=== PATIENT | female | born 1980 | race Caucasian/White ===

== ENCOUNTER → 2019-07-17 14:29 | Outpatient (CLI) | payer BC, SELFPAY ==
[2019-07-17 14:45] LABS: Basophils # 0.1 K/mm3 (0-0.2); Basophils % 0.7 % (0.1-2.0); Eosinophils # 0.3 K/mm3 (0.0-0.4); Eosinophils % 3.2 % (0.1-12.0); Hematocrit 46.1 % (37.0-47.0); Hemoglobin 14.4 g/dL (12.2-16.2); Lymphocytes # 2.2 K/mm3 (0.7-4.5); Lymphocytes % 27.2 % (10-50); Mean Corpuscular HGB Conc 31.4 g/dL (31.8-35.4); Mean Corpuscular Hemoglobin 31.1 pg (27.0-31.2); Mean Corpuscular Volume 99.3 fl (81-99); Mean Platelet Volume 9.2 fl (7.4-10.4); Monocytes # 0.4 K/mm3 (0.1-1.0); Monocytes % 4.6 % (1.7-9.3); Neutrophils # 5.2 K/mm3 (1.8-7.8); Neutrophils % 64.3 % (37.0-80.0); Platelet Count 274 K/mm3 (142-424); Red Blood Count 4.64 M/mm3 (4.20-5.40); Red Cell Distribution Width 12.9 % (11.5-17.5)
[2019-07-17 15:35] LABS: Alanine Aminotransferase 53 U/L (12-78); Albumin Level 3.7 gm/dL (3.4-5.0); Albumin/Globulin Ratio 1.1 (1.1-1.8); Alkaline Phosphatase 70 U/L (46-116); Anion Gap 13.5 mEq/L (5-15); Aspartate Amino Transferase 16 U/L (15-37); Bilirubin,Total 0.2 mg/dL (0.2-1.0); Blood Urea Nitrogen 22 mg/dL (7-18); Calcium 8.8 mg/dL (8.5-10.1); Carbon Dioxide 24 mmol/L (21.0-32.0); Chloride 106 mmol/L (98-107); Chol/HDL Ratio 3.4 (1-3.5); Cholesterol 181 mg/dL (140-200); Creatinine,Serum 0.71 mg/dL (0.55-1.02); Estimated Glomerular Filt Rate 93 ml/min (>60); GFR (African American) 112 ML/MIN (>60); Globulin 3.4 gm/dl (1.3-3.2); Glucose 80 mg/dL (74-106); HDL Cholesterol 53 mg/dL (29-89); LDL Cholesterol 110 mg/dL (0-130); Potassium 4.5 mmoL/L (3.5-5.1); Sodium 139 mmol/L (136-145); Thyroid Stimulating Hormone 0.69 uIU/ml (0.358-3.740); Total Protein,Serum 7.1 gm/dL (6.4-8.2); Triglycerides 88 mg/dL (30-200); VLDL Cholesterol 18 mg/dL (0-40)
[2019-07-19 08:13] LABS: Vitamin D 25 Hydroxy 38.6 ng/mL (30.0-100.0)
== END ==
PROVIDERS: Visit Provider Nurse Practitioner Family
DX: I10 Essential (primary) hypertension (principal); R51 Headache
CPT/HCPCS: 80053; 80061; 82652; 84436; 84443; 85025

== ENCOUNTER → 2019-07-27 07:47 | Outpatient (CLI) | payer BC, SELFPAY ==
--- NOTE | 2019-07-27 07:48 | CA_ITS ---
APPROVED REPORT Nozzle Operator: Gela Bucio RVT Study Quality: Excellent Indications: hypertension Risk Factors Hypertension Smoking Renal Artery Doppler Origin (R) 109.6/ cm/sec Proximal (R) 126.3/ cm/sec Mid (R) 96.9/ cm/sec Distal (R) 90.7/ cm/sec Renal Aorta Ratio (R) 1.12 Segmental A. (R) 66.1/25.9 cm/sec RI: 0.60 Segmental A. Sup (R) 33.0/16.1 cm/sec Segmental A. Mid (R) 66.1/25.9 cm/sec Segmental A. Inf (R) 34.8/17.9 cm/sec Origin (L) 92.0/ cm/sec Proximal (L) 70.7/ cm/sec Mid (L) 87.2/ cm/sec Distal (L) 76.4/ cm/sec Renal Aorta Ratio (L) 0.82 Segmental A. (L) 44.0/25.0 cm/sec RI: 0.43 Segmental A. Sup (L) 44.0/25.0 cm/sec Segmental A. Mid (L) 23.5/13.2 cm/sec Segmental A. Inf (L) 39.1/17.1 cm/sec Renal Measurements Kidney Size (R) 11.0x6.7 cm Cortical Thickness (R) 1.3 cm Kidney Size (L) 9.9x6.2 cm Cortical Thickness (L) 1.3 cm Conclusion Study suggests no evidence of renal artery stenosis of the bilateral renal arteries. Electronically signed by : Brian Gan MD 07/27/2019 17:32:43
== END ==
PROVIDERS: PCP Nurse Practitioner Family; Visit Provider Nurse Practitioner Family
DX: I10 Essential (primary) hypertension (principal)
CPT/HCPCS: 93976

== ENCOUNTER 2021-05-07 15:51 | Emergency (ER) | payer BC, SELFPAY ==
[2021-05-07 17:46] VITALS: BP 118/79; PULSE 69; RESP 19; TEMP 36.6; O2SAT 98; BMI 26.6
[2021-05-07 17:50] VITALS: BP 118/79; PULSE 69; RESP 18; TEMP 36.6
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
== END 2021-05-07 18:11 | disposition home or self-care (01) ==
PROVIDERS: Emergency Provider Nurse Practitioner Family; PCP Emergency Medicine
DX: Z20.822 Contact with and (suspected) exposure to COVID-19 (principal); F17.210 Nicotine dependence, cigarettes, uncomplicated
CPT/HCPCS: 99202; G0463; U0003

== ENCOUNTER 2021-11-19 09:13 | Emergency (ER) | payer BC, SELFPAY ==
[2021-11-19 09:13] VITALS: BP 155/100; PULSE 69; RESP 20; TEMP 37; O2SAT 98
[2021-11-19 09:15] VITALS: BMI 25.4
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
--- NOTE | 2021-11-19 09:23 | ECG_ITS ---
APPROVED REPORT Exam: Resting ECG HR:65 bpm ECG Measurements Heart Rate 65 AXES NV 175 P 48 QRSd 103 QRS 7 QT 413 T 38 QTc 424 Conclusion SINUS RHYTHM Normal ECG UNCONFIRMED REPORT Electronically signed by : Cuong Soliman MD 11/19/2021 17:27:19
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
[2021-11-19 09:28] LABS: Basophils # 0.2 K/mm3 (0-0.2); Basophils % 1.5 % (0.1-2.0); Eosinophils # 0.3 K/mm3 (0.0-0.4); Eosinophils % 2.9 % (0.1-12.0); Hematocrit 44.7 % (37.0-47.0); Hemoglobin 14.7 g/dL (12.2-16.2); Mean Corpuscular HGB Conc 32.9 g/dL (31.8-35.4); Mean Corpuscular Hemoglobin 32.2 pg (27.0-31.2); Monocytes # 0.5 K/mm3 (0.1-1.0); Monocytes % 4.8 % (1.7-9.3); Neutrophils # 7.4 K/mm3 (1.8-7.8); Neutrophils % 64.8 % (37.0-80.0); Platelet Count 328 K/mm3 (142-424); Red Blood Count 4.56 M/mm3 (4.20-5.40); Red Cell Distribution Width 12.5 % (11.5-17.5); White Blood Count 11.4 K/mm3 (4.8-10.8)
[2021-11-19 09:36] LABS: Alanine Aminotransferase 66 U/L (12-78); Albumin Level 4.1 g/dl (3.5-5.0); Albumin/Globulin Ratio 1.4 (1.1-1.8); Alkaline Phosphatase 60 U/L (38-126); Aspartate Amino Transferase 76 U/L (14-36); Bilirubin,Total 0.3 mg/dl (0.2-1.3); Blood Urea Nitrogen 17 mg/dl (7-17); Calcium 8.9 mg/dl (8.4-10.2); Carbon Dioxide 27 mmol/L (22.0-30.0); Chloride 107 mmol/L (98-107); Estimated Glomerular Filt Rate 111 ml/min (>60); GFR (African American) 135 ML/MIN (>60); Globulin 2.9 g/dL (1.3-3.2); Glucose 129 mg/dl (74-100); Lipase 156 U/L (23-300); Sodium 141 mmol/L (136-145)
[2021-11-19 09:37] VITALS: BP 137/97; PULSE 66; RESP 16; O2SAT 93
[2021-11-19 09:40] LABS: HCG Qualitative, Serum Negative (Negative)
[2021-11-19 10:31] VITALS: BP 133/92; PULSE 61; RESP 19; O2SAT 96
--- NOTE | 2021-11-19 10:49 | PC.NURSE ---
Radiologist called for emergent consult of patient.
--- NOTE | 2021-11-19 10:54 | PC.NURSE ---
contacted radiology for them to power share scans with [facility] per [facility] request, spoke with rikki
--- NOTE | 2021-11-19 10:59 | PC.NURSE ---
Dr Silvestre talking to [facility] Dr Romo. Pt report to be called and pt sent to [facility] ER
[2021-11-19 11:01] VITALS: BP 138/102; RESP 16
--- NOTE | 2021-11-19 11:05 | PC.NURSE ---
pt c/o abd pain
[2021-11-19 11:08] LABS: Coronavirus 19, PCR Not Detected (NotDetected); Influenza A, PCR Not Detected (NotDetected); Influenza B, PCR Not Detected (NotDetected)
--- NOTE | 2021-11-19 11:09 | PC.NURSE ---
iv #18 angio rt ac. labs drawn
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
[2021-11-19 11:14] LABS: INR 0.87 (0.9-1.1); Prothrombin Time 9.9 seconds (10.1-12.5)
--- NOTE | 2021-11-19 11:20 | PC.NURSE ---
report to [employer].
[2021-11-19 11:25] VITALS: BP 122/72; PULSE 64; RESP 20; TEMP 36.8; O2SAT 98
--- NOTE | 2021-11-19 11:27 | PC.NURSE ---
report called to [facility].
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
[2021-11-19 11:31] VITALS: BP 122/72; PULSE 64; RESP 20; TEMP 36.8; O2SAT 98
== END 2021-11-19 11:32 | disposition short-term general hospital (02) ==
PROVIDERS: Emergency Provider Emergency Medicine; PCP Emergency Medicine
DX: S36.039A Unspecified laceration of spleen, initial encounter (principal); S00.83XA Contusion of other part of head, initial encounter; V47.5XXA Car driver injured in collision with fixed or stationary object in traffic accident, initial encounter; Y92.413 State road as the place of occurrence of the external cause
CPT/HCPCS: 70450; 71045; 71275; 72125; 73060; 73552; 74177; 80053; 83690; 84703; 85025; 85610; 86850; 93005; 96365; 96375; 96376; 99285; C9803; J2405; Q9967; U0003; U0005

== ENCOUNTER 2021-11-25 07:43 | Observation (INO) | payer BC, SELFPAY ==
[2021-11-25] VITALS (20 sets, daily range): BP systolic 102–126; BP diastolic 62–84; PULSE 59–86; RESP 16–23; TEMP 36.6–37.2; O2SAT 93–98; BMI 26.4
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
--- NOTE | 2021-11-25 08:03 | CT_ITS ---
FINAL REPORT TECHNIQUE: After the administration of oral and intravenous contrast, axial images were obtained through the abdomen and pelvis by computed tomography. The study was performed with techniques to keep radiation dose as low as reasonably achievable, (ALARA). Individual dose reduction techniques using automated exposure control or adjustment of mA and/or kV according to the patient's size were employed. CLINICAL HISTORY: recent spleen injury, worsening pain 75 cc of isovue 370 and saline flush COMPARISON: November 19, 2021 FINDINGS: Abdomen: There is bibasilar atelectasis which is increased over previous. The liver parenchyma is homogeneous. The liver is enlarged measuring 22 cm in craniocaudal dimension. The gallbladder is distended. There is redemonstration of the complex splenic laceration which is well seen on images 16-27 of series 5. The laceration is better seen than previously. There appears to be 2 components of the laceration. The more superior component is larger and best seen on image number 19. A perisplenic hematoma has developed and measures approximately 11.5 cm in AP dimension and up to 3.3 cm in transverse dimension. There is mass effect on the lateral margin of the spleen. The pancreas, adrenals and kidneys appear unremarkable. The aorta is normal in caliber. Pelvis: The uterus is present and lies eccentric to the right. There is high attenuation ascites in the pelvis which is likely hemorrhagic. The urinary bladder is unremarkable. There is no free fluid or adenopathy. IMPRESSION: Interval development of a large perisplenic hematoma. Interval development of hemorrhagic ascites in the pelvis. Redemonstration of a splenic lacerations, better seen than previous. These findings were called to Hugo in the ER department at the time of interpretation. Reviewed, Interpreted and Dictated by Hoang Deras MD Transcribed by Shreya Benavides Authenticated by Hoang Deras MD on 11/25/2021 10:03:49 AM [facility]
--- NOTE | 2021-11-25 08:18 | HMH.EDGENADL ---
ED Disposition Clinical Impression: Splenic laceration Qualifiers: Encounter type: initial encounter Qualified Code(s): S36.039A - Unspecified laceration of spleen, initial encounter Disposition: Admitted as Observation Condition on Discharge: Good Referrals: Martin Buck MD [Primary Care Provider] - - Critical Care Critical Care Time: No Attestation: On 11/25/21, the high probability of a clinically significant, sudden or life threatening deterioration of the following system(s) required my full and direct attention, intervention and personal management. The time I documented below is in addition to time spent performing reported procedures but includes the following listed in this critical care notation. Medical Decision Making - Medical Records Medical records reviewed: Yes: I reviewed the patient's medical records. MR Comment: Reviewed emergency department record from 11/19/2021. Reviewed x-ray and CT reports. Reviewed records from [facility]. Reviewed discharge summary, CT report. Injuries include a grade IV splenic laceration with pseudo-aneuysm/extrav, large splenic subcapsular hematoma, and hemoperitoneum. --s/p IR splenic embolization on 11/19. CT angio of abdomen/pelvis showed Spleen: There is splenic laceration of 4.3 cm in the posterior superior aspect of the spleen. There is acute extravasation of contrast. There is subcapsular hematoma greater than 80% of the surface area. Intraparenchymal laceration greater than 3 cm. This lesion is a grade 3 injury. F/U recommended - PCP 1 wk, [facility] trauma 2 wks as needed. Attending - Dr. Carbajal. - Tyshawn Inquiry Pt receiving controlled substance: Yes Tyshawn was queried for this patient: Yes Risks and benefits of using a controlled substance: were not discussed with pt by me Vital Signs: 11/25/21 07:45 11/25/21 08:01 11/25/21 09:30 Temperature 97.8 F Temperature Source Oral Pulse Rate 75 80 Pulse Rate [Right Radial] 74 Respiratory Rate 18 Blood Pressure 124/76 102/68 L Blood Pressure [Right Arm] 118/73 Blood Pressure Mean 80 Blood Pressure Mean [Right Arm] 88 Blood Pressure Source [Right Arm] Automatic Cuff Blood Pressure Position [Right Arm] Sitting 02 Sat by Pulse Oximetry 96 94 L 96 Oxygen Delivery Method Room Air 11/25/21 10:00 11/25/21 10:30 11/25/21 11:00 Temperature Temperature Source Pulse Rate 59 L 59 L 86 Pulse Rate [Right Radial] Respiratory Rate Blood Pressure 107/74 L 109/84 L 112/76 Blood Pressure [Right Arm] Blood Pressure Mean 85 89 88 Blood Pressure Mean [Right Arm] Blood Pressure Source [Right Arm] Blood Pressure Position [Right Arm] 02 Sat by Pulse Oximetry 94 L 94 L 96 Oxygen Delivery Method 11/25/21 11:30 Temperature Temperature Source Pulse Rate 78 Pulse Rate [Right Radial] Respiratory Rate Blood Pressure 111/75 Blood Pressure [Right Arm] Blood Pressure Mean 89 Blood Pressure Mean [Right Arm] Blood Pressure Source [Right Arm] Blood Pressure Position [Right Arm] 02 Sat by Pulse Oximetry 95 Oxygen Delivery Method - Lab Data Lab Results 11/25/21 08:10: WBC 11.5 H, RBC 3.24 L, Hgb 10.3 L, Hct 32.5 L, MCV 100.2 H, MCH 31.8 H, MCHC 31.8, RDW 13.4, Plt Count 381, MPV 9.6, Neut % (Auto) 73.1, Lymph % (Auto) 16.6, [place] % (Auto) 5.6, Eos % (Auto) 3.9, Baso % (Auto) 0.7, Neut # (Auto) 8.4 H, Lymph # (Auto) 1.9, [place] # (Auto) 0.6, Eos # (Auto) 0.5 H, Baso # (Auto) 0.1 11/25/21 08:10: Sodium 137, Potassium 4.4, Chloride 106, Carbon Dioxide 25, Anion Gap 10.4, BUN 17, Creatinine 0.50 L, Estimated Creat Clear 151, Estimated GFR 137, Est GFR ( Amer) 166, Glucose 123 H, Calcium 9.1, Total Bilirubin 0.6, AST 40 H, ALT 36, Alkaline Phosphatase 80, Total Protein 7.1, Albumin 3.9, Globulin 3.2, Albumin/Globulin Ratio 1.2, Lipase 73 11/25/21 08:10: Serum HCG, Qual Negative Result diagrams: 11/25/21 08:10 11/25/21 08:10 Orders (Tests/Meds): ED MEDICATI
[2021-11-25 08:31] LABS: Alanine Aminotransferase 36 U/L (12-78); Albumin Level 3.9 g/dl (3.5-5.0); Albumin/Globulin Ratio 1.2 (1.1-1.8); Alkaline Phosphatase 80 U/L (38-126); Anion Gap 10.4 mEq/L (5-15); Aspartate Amino Transferase 40 U/L (14-36); Bilirubin,Total 0.6 mg/dl (0.2-1.3); Blood Urea Nitrogen 17 mg/dl (7-17); Calcium 9.1 mg/dl (8.4-10.2); Carbon Dioxide 25 mmol/L (22.0-30.0); Chloride 106 mmol/L (98-107); Creatinine Clearance Estimated 151 mL/min (50-200); Estimated Glomerular Filt Rate 137 ml/min (>60); GFR (African American) 166 ML/MIN (>60); Globulin 3.2 g/dL (1.3-3.2); Glucose 123 mg/dl (74-100); Lipase 73 U/L (23-300); Potassium 4.4 mmoL/L (3.5-5.1); Sodium 137 mmol/L (136-145); Total Protein,Serum 7.1 g/dl (6.3-8.2)
[2021-11-25 08:33] LABS: Basophils # 0.1 K/mm3 (0-0.2); Basophils % 0.7 % (0.1-2.0); Eosinophils # 0.5 K/mm3 (0.0-0.4); Eosinophils % 3.9 % (0.1-12.0); HCG Qualitative, Serum Negative (Negative); Hematocrit 32.5 % (37.0-47.0); Hemoglobin 10.3 g/dL (12.2-16.2); Lymphocytes # 1.9 K/mm3 (0.7-4.5); Lymphocytes % 16.6 % (10-50); Mean Corpuscular HGB Conc 31.8 g/dL (31.8-35.4); Mean Corpuscular Hemoglobin 31.8 pg (27.0-31.2); Mean Corpuscular Volume 100.2 fl (81-99); Mean Platelet Volume 9.6 fl (7.4-10.4); Monocytes # 0.6 K/mm3 (0.1-1.0); Monocytes % 5.6 % (1.7-9.3); Neutrophils # 8.4 K/mm3 (1.8-7.8); Neutrophils % 73.1 % (37.0-80.0); Platelet Count 381 K/mm3 (142-424); Red Blood Count 3.24 M/mm3 (4.20-5.40); Red Cell Distribution Width 13.4 % (11.5-17.5); White Blood Count 11.5 K/mm3 (4.8-10.8)
--- NOTE | 2021-11-25 08:56 | PC.NURSE ---
pt in CT
--- NOTE | 2021-11-25 10:20 | PC.NURSE ---
speaking to about consult regarding CT results
--- NOTE | 2021-11-25 13:14 | PC.NURSE ---
MIGUEL ANGEL BOLTON speaking with [facility] again at this time
--- NOTE | 2021-11-25 14:08 | PC.NURSE ---
notified care management of admission, spoke with carlos
[2021-11-25 14:13] LABS: Coronavirus 19, PCR Not Detected (NotDetected); Influenza A, PCR Not Detected (NotDetected); Influenza B, PCR Not Detected (NotDetected)
--- NOTE | 2021-11-25 14:45 | PC.NURSE ---
per loader [employer] pt will be boarding in ER until shift change
--- NOTE | 2021-11-25 14:59 | PC.NURSE ---
traffic warehouse supervisor called with updated room assignment-states pt will go to room 266
--- NOTE | 2021-11-25 15:10 | PC.NURSE ---
lab staff states covid swab is in line to be done, has one swab on the analyzer in front of it
[2021-11-25 15:47] LABS: Basophils # 0.1 K/mm3 (0-0.2); Basophils % 0.9 % (0.1-2.0); Eosinophils # 0.3 K/mm3 (0.0-0.4); Eosinophils % 3.3 % (0.1-12.0); Hematocrit 32.7 % (37.0-47.0); Hemoglobin 10.7 g/dL (12.2-16.2); Lymphocytes # 1.6 K/mm3 (0.7-4.5); Lymphocytes % 16.8 % (10-50); Mean Corpuscular HGB Conc 32.6 g/dL (31.8-35.4); Mean Corpuscular Hemoglobin 32.1 pg (27.0-31.2); Mean Corpuscular Volume 98.4 fl (81-99); Mean Platelet Volume 9.5 fl (7.4-10.4); Monocytes # 0.5 K/mm3 (0.1-1.0); Monocytes % 5.3 % (1.7-9.3); Neutrophils # 7.1 K/mm3 (1.8-7.8); Neutrophils % 73.7 % (37.0-80.0); Platelet Count 371 K/mm3 (142-424); Red Blood Count 3.33 M/mm3 (4.20-5.40); Red Cell Distribution Width 13.4 % (11.5-17.5); White Blood Count 9.6 K/mm3 (4.8-10.8)
--- NOTE | 2021-11-25 16:34 | PC.NURSE ---
report called to zak sorensen rn in [facility]U at this time
[2021-11-25 21:25] LABS: Basophils # 0.2 K/mm3 (0-0.2); Basophils % 1.7 % (0.1-2.0); Eosinophils # 0.4 K/mm3 (0.0-0.4); Eosinophils % 4.2 % (0.1-12.0); Hemoglobin 10.7 g/dL (12.2-16.2); Lymphocytes # 1.5 K/mm3 (0.7-4.5); Lymphocytes % 16.1 % (10-50); Mean Corpuscular HGB Conc 33.3 g/dL (31.8-35.4); Mean Corpuscular Hemoglobin 32.7 pg (27.0-31.2); Mean Platelet Volume 9.2 fl (7.4-10.4); Monocytes # 0.4 K/mm3 (0.1-1.0); Monocytes % 4.6 % (1.7-9.3); Neutrophils # 6.7 K/mm3 (1.8-7.8); Neutrophils % 73.4 % (37.0-80.0); Platelet Count 384 K/mm3 (142-424); Red Blood Count 3.26 M/mm3 (4.20-5.40); Red Cell Distribution Width 13.3 % (11.5-17.5); White Blood Count 9.1 K/mm3 (4.8-10.8)
--- NOTE | 2021-11-25 22:47 | HMH.PHAVTE ---
[facility] Pharmacy VTE Monitoring - Patient Demographics Admission date: 11/25/21 Report Date: 11/25/21 Time: 22:47 Allergies/Adverse Reactions: Patient Allergies Codeine Allergy (Unknown, Uncoded 07/24/19 14:25) Height: 1.55 m Weight: 63.503 kg Patient Problems: Current Active Problems Spleen laceration (Acute) - VTE Risk Labs: VTE Related Lab Results Hgb 10.7 g/dL (12.2-16.2) L 11/25/21 21:19 Hct 32.0 % (37.0-47.0) L 11/25/21 21:19 Plt Count 384 K/mm3 (142-424) 11/25/21 21:19 BUN 17 mg/dl (7-17) 11/25/21 08:10 Creatinine 0.50 mg/dl (0.52-1.04) L 11/25/21 08:10 Estimated Creat Clear 151 mL/min (50-200) 11/25/21 08:10 Was VTE Risk Assessment Performed: No VTE Score: 0 VTE Risk Level: Very Low Risk Clinical Trial Participant: No - Prophylaxis VTE Prophylaxis Ordered?: Yes Types of VTE Prophylaxis: TEDS Knee High
--- NOTE | 2021-11-25 22:50 | HMH.PHAINT ---
clarified home medication list using list from [facility]
[2021-11-26] VITALS: BP 114/77; PULSE 68; PULSE 90; RESP 17; TEMP 36.9; O2SAT 93
[2021-11-26 02:00] VITALS: BP 90/56; PULSE 61; RESP 17; TEMP 37; O2SAT 96
[2021-11-26 03:43] LABS: Basophils # 0.1 K/mm3 (0-0.2); Basophils % 1.1 % (0.1-2.0); Eosinophils # 0.4 K/mm3 (0.0-0.4); Eosinophils % 4.1 % (0.1-12.0); Hematocrit 32.9 % (37.0-47.0); Hemoglobin 10.8 g/dL (12.2-16.2); Lymphocytes % 19.4 % (10-50); Mean Corpuscular HGB Conc 32.7 g/dL (31.8-35.4); Mean Corpuscular Hemoglobin 32.4 pg (27.0-31.2); Mean Corpuscular Volume 99.3 fl (81-99); Mean Platelet Volume 8.9 fl (7.4-10.4); Monocytes # 0.5 K/mm3 (0.1-1.0); Monocytes % 4.8 % (1.7-9.3); Neutrophils # 7.1 K/mm3 (1.8-7.8); Neutrophils % 70.6 % (37.0-80.0); Platelet Count 390 K/mm3 (142-424); Red Blood Count 3.32 M/mm3 (4.20-5.40); Red Cell Distribution Width 13.4 % (11.5-17.5); White Blood Count 10.1 K/mm3 (4.8-10.8)
[2021-11-26 04:00] VITALS: BP 113/75; PULSE 65; PULSE 78; RESP 18; TEMP 36.4; O2SAT 94
[2021-11-26 05:00] VITALS: BMI 24.9
[2021-11-26 08:00] VITALS: BP 97/68; PULSE 60; PULSE 64; RESP 16; TEMP 36.7; O2SAT 94
[2021-11-26 09:04] VITALS: RESP 16
[2021-11-26 09:18] LABS: Basophils # 0.1 K/mm3 (0-0.2); Basophils % 0.8 % (0.1-2.0); Eosinophils # 0.4 K/mm3 (0.0-0.4); Eosinophils % 4.3 % (0.1-12.0); Hematocrit 32.1 % (37.0-47.0); Hemoglobin 10.6 g/dL (12.2-16.2); Lymphocytes # 1.9 K/mm3 (0.7-4.5); Lymphocytes % 20.5 % (10-50); Mean Corpuscular HGB Conc 32.9 g/dL (31.8-35.4); Mean Corpuscular Hemoglobin 32.5 pg (27.0-31.2); Mean Corpuscular Volume 98.8 fl (81-99); Mean Platelet Volume 9.1 fl (7.4-10.4); Monocytes # 0.5 K/mm3 (0.1-1.0); Monocytes % 5.1 % (1.7-9.3); Neutrophils # 6.4 K/mm3 (1.8-7.8); Neutrophils % 69.3 % (37.0-80.0); Platelet Count 389 K/mm3 (142-424); Red Blood Count 3.25 M/mm3 (4.20-5.40); Red Cell Distribution Width 13.3 % (11.5-17.5); White Blood Count 9.2 K/mm3 (4.8-10.8)
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
--- NOTE | 2021-11-27 13:49 | CARE MANAGER ---
Attempted to call patient to discuss post discharge status, left voicemail with my call back number.
== END 2021-11-26 11:11 | disposition home or self-care (01) ==
LOC: ER 14:09 → 2ND 16:58 → ICU 16:58
PROVIDERS: Family Medicine; Admitting Provider Emergency Medicine; Emergency Provider Emergency Medicine; PCP Emergency Medicine; Visit Provider Emergency Medicine
DX: S36.039A Unspecified laceration of spleen, initial encounter (principal); Z20.822 Contact with and (suspected) exposure to COVID-19; Z79.899 Other long term (current) drug therapy; Z88.5 Allergy status to narcotic agent; F17.210 Nicotine dependence, cigarettes, uncomplicated
CPT/HCPCS: 36415; 71046; 74177; 80053; 83690; 84703; 85025; 99285; C9803; G0378; J2405; Q9967; U0003; U0005

== ENCOUNTER → 2021-12-30 09:26 | Outpatient (CLI) | payer BC, SELFPAY ==
--- NOTE | 2021-12-30 09:30 | XR_ITS ---
FINAL REPORT CLINICAL HISTORY: R thumblocking joint w/pain FINDINGS: 3 views of the right hand were obtained. There is no acute fracture or dislocation. The joint spaces are intact. There is no soft tissue abnormality. IMPRESSION: No acute process. Reviewed, Interpreted and Dictated by Hoang Deras MD Transcribed by Tariq Mosqueda Authenticated by Hoang Deras MD on 12/30/2021 10:48:53 AM [facility]
[2021-12-30 10:02] LABS: Basophils # 0.1 K/mm3 (0-0.2); Basophils % 0.6 % (0.1-2.0); Eosinophils # 0.2 K/mm3 (0.0-0.4); Eosinophils % 2.4 % (0.1-12.0); Hematocrit 40.9 % (37.0-47.0); Hemoglobin 13.3 g/dL (12.2-16.2); Lymphocytes # 2.6 K/mm3 (0.7-4.5); Lymphocytes % 32.2 % (10-50); Mean Corpuscular HGB Conc 32.6 g/dL (31.8-35.4); Mean Corpuscular Hemoglobin 31.1 pg (27.0-31.2); Mean Corpuscular Volume 95.2 fl (81-99); Mean Platelet Volume 8.9 fl (7.4-10.4); Monocytes # 0.5 K/mm3 (0.1-1.0); Monocytes % 6.3 % (1.7-9.3); Neutrophils # 4.8 K/mm3 (1.8-7.8); Neutrophils % 58.5 % (37.0-80.0); Platelet Count 284 K/mm3 (142-424); Red Cell Distribution Width 12.8 % (11.5-17.5); White Blood Count 8.1 K/mm3 (4.8-10.8)
[2021-12-30 10:46] LABS: Alanine Aminotransferase 20 U/L (12-78); Albumin Level 4.1 g/dl (3.5-5.0); Albumin/Globulin Ratio 1.6 (1.1-1.8); Alkaline Phosphatase 53 U/L (38-126); Anion Gap 8.8 mEq/L (5-15); Aspartate Amino Transferase 19 U/L (14-36); Bilirubin,Total 0.4 mg/dl (0.2-1.3); Blood Urea Nitrogen 17 mg/dl (7-17); Calcium 9.8 mg/dl (8.4-10.2); Carbon Dioxide 27 mmol/L (22.0-30.0); Chloride 109 mmol/L (98-107); Estimated Glomerular Filt Rate 93 ml/min (>60); GFR (African American) 113 ML/MIN (>60); Globulin 2.6 g/dL (1.3-3.2); Glucose 93 mg/dl (74-100); Potassium 3.8 mmoL/L (3.5-5.1); Sodium 141 mmol/L (136-145); Total Protein,Serum 6.7 g/dl (6.3-8.2)
[2021-12-30 11:17] LABS: Erythrocyte Sedimentation Rate 58 mm/hr (0-20)
== END ==
PROVIDERS: PCP Emergency Medicine; Visit Provider Emergency Medicine
DX: M24.842 Other specific joint derangements of left hand, not elsewhere classified (principal); L65.9 Nonscarring hair loss, unspecified
CPT/HCPCS: 36415; 73130; 80053; 85025; 85651

== ENCOUNTER 2022-06-10 08:38 | Emergency (ER) | payer BC, SELFPAY ==
[2022-06-10 08:39] VITALS: BP 107/80; PULSE 61; RESP 18; TEMP 36.5; O2SAT 99; BMI 25.7
[2022-06-10 08:46] VITALS: BMI 25.7
--- NOTE | 2022-06-10 08:49 | XR_ITS ---
FINAL REPORT CLINICAL HISTORY: pain FINDINGS: RIGHT SHOULDER: 3 views of the right shoulder were obtained. There is no acute fracture or dislocation. There is mild elevation of the distal clavicle. There is no soft tissue abnormality. IMPRESSION: Mild elevation of the distal clavicle. Mild AC joint separation cannot be excluded. Reviewed, Interpreted and Dictated by Chaitanya Hurley III, MD Transcribed by Tariq Mosqueda Authenticated and [facility]
--- NOTE | 2022-06-10 08:50 | PC.NURSE ---
checked on pt, pt call light hooked on pt bed within reach of pt. Pt states no needs at this time.
--- NOTE | 2022-06-10 08:51 | PC.NURSE ---
notified rad of xray order
--- NOTE | 2022-06-10 08:56 | PC.NURSE ---
pt in xray
--- NOTE | 2022-06-10 09:14 | PC.NURSE ---
MIGUEL ANGEL BOLTON at
--- NOTE | 2022-06-10 09:15 | HMH.EDGENADL ---
Discharge Plan Disposition Patient Disposition: Home, Self-Care Condition: Good Prescriptions Prescriptions: New ibuprofen 600 mg tablet 600 mg PO Q6H PRN (Reason: moderate pain ) Qty: 20 0RF No Action cholecalciferol (vitamin D3) 1,250 mcg (50,000 unit) capsule 1,250 mcg PO WEEKLY Referrals Follow up/Referrals: Martin Buck MD [Primary Care Provider] - See instructions Activity Restrictions/Add. Instructions Additional Instructions/Restrictions: Ibuprofen as prescribed. Follow-up with primary care provider if not improved in 3 to 4 days. Clinical Impressions Clinical Impression: Right shoulder tendinitis Stand Alone Forms Stand Alone Forms: Work/School Release Discharge ED Provider: Robby Daniel General Adult HPI General Chief complaint: Extremity Problem,Nontraumatic Stated complaint: RT shoulder pain, no accident Time Seen by Provider: 06/10/22 09:09 Mode of Arrival: Ambulatory Source of Information: Patient Limitations: No Limitations Description of Symptoms (Recalled from ER Triage Doc. 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 Denies any other injuries History of Present Illness HPI narrative: 2-day history of right shoulder pain. Predominantly anterior shoulder. No pain at rest, only hurts with movement. She does a lot of physical labor at work and is right-hand dominant. No treatment prior to arrival. No direct trauma. Related Data Home Medications Medication Instructions Recorded Confirmed cholecalciferol (vitamin D3) 1,250 1,250 mcg PO WEEKLY 02/19/22 02/19/22 mcg (50,000 unit) capsule Previous Rx's Medication Instructions Recorded ibuprofen 600 mg tablet 600 mg PO Q6H PRN moderate pain 06/10/22 #20 tabs Allergies Allergy/AdvReac Type Severity Reaction Status Date / Time Codeine Allergy Unknown Uncoded 02/19/22 08:46 PFSH PFSH Social History Smoking Status: Light tobacco smoker tobacco type: e-cigarettes alcohol intake: never substance use type: denies use current occupational status: unemployed Travel in the last 8 weeks: None household members: children housing: apartment ROS Obtained: Yes Systems reviewed as appropriate & no additional complaints except as documented Constitutional Constitutional: Denies fever(s) and Denies weakness Musculoskeletal Musculoskeletal: Reports as per HPI, Reports arthralgias (right shoulder) and Denies numbness Neurologic Neurologic: Denies numbness and Denies weakness Physical Exam General General appearance: alert and in no apparent distress Chest Chest inspection: Present normal inspection and symmetric chest wall rise Expanded Chest Exam Male Torso: 1. tender Respiratory Respiratory exam: Absent respiratory distress Cardiovascular Cardiovascular exam: Present regular rate Expanded Upper Extremity Exam Right: Shoulder exam: Present normal inspection, full ROM and tenderness (anterior); Absent swelling, deformity, crepitus, dislocation or tenderness over AC joint Comment: Tenderness right anterior shoulder. Full range of motion. Pain with abduction flexion and extension. No pain with internal and external rotation. No effusion. No crepitance. No subacromial tenderness. Normal neurovascular status distally. Neurological Exam Neurological exam: Present alert and oriented X3 Psychiatric Psychiatric exam: Present normal affect and normal mood Skin Skin exam: Present warm and dry Medical Decision Making Tyshawn Inquiry Pt receiving controlled substance: No Vital Signs: 06/10/22 08:39 06/10/22 09:44 Temperature 97.7 F 97.7 F Temperature Source Oral Oral Pulse Rate 85 Pulse Rate [Left Radial] 61 Respiratory Rate 18 18 Blood Pressure 110/65 Blood Pressure [Right Arm] 107/80 L Blood Pressure Mean [Right Arm] 89 Blood Pressure Source [Right Arm] Automatic
[2022-06-10 09:44] VITALS: BP 110/65; PULSE 85; RESP 18; TEMP 36.5; O2SAT 99
== END 2022-06-10 09:46 | disposition home or self-care (01) ==
PROVIDERS: Emergency Provider Emergency Medicine; PCP Emergency Medicine
DX: M77.8 Other enthesopathies, not elsewhere classified (principal); M25.511 Pain in right shoulder
CPT/HCPCS: 73030; 99283

== ENCOUNTER 2022-07-05 11:24 | Emergency (ER) | payer BC, SELFPAY ==
[2022-07-05 11:25] VITALS: BP 146/94; PULSE 68; RESP 16; TEMP 36.6; O2SAT 98; BMI 25.4
--- NOTE | 2022-07-05 11:51 | HMH.EDURI ---
Discharge Plan Disposition Patient Disposition: Home, Self-Care Prescriptions Prescriptions: New cefdinir 300 mg capsule 300 mg PO BID 10 Days Qty: 20 0RF methylprednisolone [Medrol (Nitin)] 4 mg tablets,dose pack 4 mg PO QID Qty: 21 0RF No Action cholecalciferol (vitamin D3) 1,250 mcg (50,000 unit) capsule 1,250 mcg PO WEEKLY ibuprofen 600 mg tablet 600 mg PO Q6H PRN (Reason: moderate pain ) Qty: 20 0RF Referrals Follow up/Referrals: Martin Buck MD [Primary Care Provider] - See instructions Activity Restrictions/Add. Instructions Additional Instructions/Restrictions: Use the medications as prescribed follow-up with your primary care physician maintain adequate hydration use Tylenol and ibuprofen r for body aches and fever as well as ear pain. Clinical Impressions Clinical Impression: Upper respiratory infection, Otitis media Instructions Patient Instructions: Common Cold, Middle Ear Infection Discharge ED Provider: Colby Gallardo URI/Sore Throat HPI General Chief Complaint: Upper Respiratory Infection Stated Complaint: cough, Rt ear pain, sore throat Time Seen by Provider: 07/05/22 11:28 Mode of Arrival: Ambulatory Limitations: No Limitations Description of Symptoms (Recalled from ER Triage Doc. by RN): Pt advises she has been feeling bad since Tuesday. Advises she has cough, congestion, sore throat and ear pain History of Present Illness HPI Narrative: 42-year-old female presents with upper respiratory symptoms x4 days. Daughter previously recovered from influenza and rhino enterovirus. She is a congestion cough is nonproductive body aches intermittent headaches and now developing right ear pain. States that the ear pain is what presented her to the emergency department given that was pending she was unable to tolerate at this point has only been using Tylenol Cold and flu intermittently. Denies difficulty breathing or chest pain. Related Data Home Medications Medication Instructions Recorded Confirmed cholecalciferol (vitamin D3) 1,250 1,250 mcg PO WEEKLY 02/19/22 02/19/22 mcg (50,000 unit) capsule Previous Rx's Medication Instructions Recorded ibuprofen 600 mg tablet 600 mg PO Q6H PRN moderate pain 06/10/22 #20 tabs cefdinir 300 mg capsule 300 mg PO BID 10 days #20 caps 07/05/22 methylprednisolone 4 mg tablets in 4 mg PO QID 4 doses #21 tabs 07/05/22 a dose pack (Medrol (Nitin)) Allergies Allergy/AdvReac Type Severity Reaction Status Date / Time Codeine Allergy Unknown Uncoded 02/19/22 08:46 PFSH PFS Social History Smoking Status: Current every day smoker tobacco type: e-cigarettes alcohol intake: never substance use type: denies use current occupational status: unemployed Travel in the last 8 weeks: None household members: children housing: apartment ROS Obtained: Yes Systems reviewed as appropriate & no additional complaints except as documented Physical Exam General General appearance: alert and in no apparent distress Head Head exam: atraumatic ENT ENT exam: Present TM's normal bilaterally (Bilateral effusions right is mildly erythematous still serous in nature) Chest Chest inspection: Present symmetric chest wall rise Respiratory Respiratory exam: Present normal lung sounds bilaterally; Absent respiratory distress Cardiovascular Cardiovascular exam: Present regular rate Neurological Exam Neurological exam: Present alert and oriented X3 Psychiatric Psychiatric exam: Present normal affect Skin Skin exam: Present warm, dry and intact Medical Decision Making Medical Records Medical records reviewed: Yes I reviewed the patient's medical records. Tyshawn Inquiry Pt receiving controlled substance: No Vital Signs: 07/05/22 11:25 Temperature 97.9 F Temperature Source Oral Pulse Rate [Right] 68 Respiratory Rate 16 Blood Pressure [Right Arm] 146/94 H Blood Pressu
[2022-07-05 12:14] VITALS: BP 138/90; PULSE 70; RESP 17; TEMP 36.7; O2SAT 98
== END 2022-07-05 12:15 | disposition home or self-care (01) ==
PROVIDERS: Emergency Provider Student in an Organized Health Care Education/Training Program; PCP Emergency Medicine
DX: H92.03 Otalgia, bilateral (principal); J06.9 Acute upper respiratory infection, unspecified; J02.9 Acute pharyngitis, unspecified; R05.9 Cough, unspecified; R51.9 Headache, unspecified; F17.290 Nicotine dependence, other tobacco product, uncomplicated; Z79.52 Long term (current) use of systemic steroids; Z79.899 Other long term (current) drug therapy; Z88.5 Allergy status to narcotic agent
CPT/HCPCS: 99283

== ENCOUNTER 2022-07-30 20:05 | Emergency (ER) | payer BC, SELFPAY ==
[2022-07-30 20:32] VITALS: BP 126/70; PULSE 63; RESP 18; TEMP 37.2; O2SAT 97; BMI 24.5
[2022-07-30 20:34] VITALS: BP 126/70; PULSE 60; RESP 16; TEMP 36.6; O2SAT 96
--- NOTE | 2022-07-30 20:47 | HMH.EDGENADL ---
Discharge Plan Disposition Patient Disposition: Home, Self-Care Condition: Good Prescriptions Prescriptions: New penicillin V potassium 500 mg tablet 500 mg PO BID 10 Days Qty: 20 0RF ibuprofen 600 mg tablet 600 mg PO Q8H PRN (Reason: pain) Qty: 20 0RF No Action cholecalciferol (vitamin D3) 1,250 mcg (50,000 unit) capsule 1,250 mcg PO WEEKLY ibuprofen 600 mg tablet 600 mg PO Q6H PRN (Reason: moderate pain ) Qty: 20 0RF cefdinir 300 mg capsule 300 mg PO BID 10 Days Qty: 20 0RF methylprednisolone [Medrol (Nitin)] 4 mg tablets,dose pack 4 mg PO QID Qty: 21 0RF Referrals Follow up/Referrals: Martin Buck MD [Primary Care Provider] - See instructions Activity Restrictions/Add. Instructions Additional Instructions/Restrictions: You have been evaluated for dental pain, diagnosed with an abscess. Please take antibiotics as prescribed. Use salt water wrinses before and after eating. Follow-up with your primary care doctor and dentist. Take Tylenol or Motrin for pain. Return to the emergency department at once for any new or worsening symptoms, difficulty swallowing, difficulty breathing, other concerns Clinical Impressions Clinical Impression: Dental caries, Abscess, dental Instructions Patient Instructions: Tooth Abscess, DI for Dental Pain Discharge ED Provider: Imelda Hernandez Adult HPI General Chief complaint: Dental/Oral Stated complaint: dental pain Time Seen by Provider: 07/30/22 20:33 Mode of Arrival: Ambulatory Source of Information: Patient Limitations: No Limitations Description of Symptoms (Recalled from ER Triage Doc. by RN): pt c/o abscess in her lower gum that she noticed yesterday. Denies any fever or injury. History of Present Illness HPI narrative: 42-year-old female presenting to the emergency department dental pain. Pain is on the front lower teeth gumline. Started earlier today. She noticed an area of swelling and redness. Now it has a whitish head. It is tender to touch. Hurts to eat. She has had dental infections before, this feels similar. No recent antibiotic or steroid use. She was unable to get into a dentist, due to the holiday. No medications prior to arrival, Tylenol or Motrin. No fevers, chills, nausea, vomiting. She does not suffer from frequent dental caries or dental decay. Related Data Home Medications Medication Instructions Recorded Confirmed cholecalciferol (vitamin D3) 1,250 1,250 mcg PO WEEKLY 02/19/22 02/19/22 mcg (50,000 unit) capsule Previous Rx's Medication Instructions Recorded ibuprofen 600 mg tablet 600 mg PO Q6H PRN moderate pain 06/10/22 #20 tabs cefdinir 300 mg capsule 300 mg PO BID 10 days #20 caps 07/05/22 methylprednisolone 4 mg tablets in 4 mg PO QID 4 doses #21 tabs 07/05/22 a dose pack (Medrol (Nitin)) ibuprofen 600 mg tablet 600 mg PO Q8H PRN pain #20 tabs 07/30/22 penicillin V potassium 500 mg 500 mg PO BID 10 days #20 tabs 07/30/22 tablet Allergies Allergy/AdvReac Type Severity Reaction Status Date / Time Codeine Allergy Unknown Uncoded 02/19/22 08:46 [facility] Social History Smoking Status: Current every day smoker tobacco type: e-cigarettes alcohol intake: never substance use type: denies use current occupational status: unemployed Travel in the last 8 weeks: None household members: children housing: apartment ROS Obtained: Yes All systems reviewed & no additional complaints except as documented Constitutional Constitutional: Denies chills and Denies fever(s) ENT Ears, Nose, Mouth, and Throat: Denies nasal congestion, Denies sinus pressure and Denies sore throat Cardiovascular Cardiovascular: Denies chest pain, Denies dyspnea and Denies palpitations Respiratory Respiratory: Denies cough, Denies dyspnea and Denies wheezing Gastrointestinal Gastrointestingal: Denies nausea or vomiting Integumentary/
[2022-07-30 21:33] VITALS: BP 120/67; PULSE 63; RESP 16; TEMP 36.6; O2SAT 97
== END 2022-07-30 21:40 | disposition home or self-care (01) ==
PROVIDERS: Emergency Provider Emergency Medicine; PCP Emergency Medicine
DX: K04.7 Periapical abscess without sinus (principal); K02.9 Dental caries, unspecified; Z72.0 Tobacco use
CPT/HCPCS: 41800; 99283

== ENCOUNTER → 2022-09-20 09:45 | Outpatient (CLI) | payer BC, SELFPAY ==
[2022-09-20 16:15] LABS: Basophils % 0.3 % (0.1-2.0); Eosinophils # 0.2 K/mm3 (0.0-0.4); Eosinophils % 2.4 % (0.1-12.0); Hematocrit 43.4 % (37.0-47.0); Hemoglobin 14.3 g/dL (12.2-16.2); Lymphocytes # 0.9 K/mm3 (0.7-4.5); Lymphocytes % 13.4 % (10-50); Mean Corpuscular HGB Conc 32.9 g/dL (31.8-35.4); Mean Corpuscular Hemoglobin 31.6 pg (27.0-31.2); Mean Platelet Volume 9.8 fl (7.4-10.4); Monocytes # 0.3 K/mm3 (0.1-1.0); Neutrophils # 5.4 K/mm3 (1.8-7.8); Platelet Count 283 K/mm3 (142-424); Red Blood Count 4.52 M/mm3 (4.20-5.40); Red Cell Distribution Width 12.8 % (11.5-17.5); White Blood Count 6.8 K/mm3 (4.8-10.8)
[2022-09-20 16:18] LABS: Alanine Aminotransferase 24 U/L (12-78); Albumin Level 4.1 g/dl (3.5-5.0); Albumin/Globulin Ratio 1.5 (1.1-1.8); Alkaline Phosphatase 59 U/L (38-126); Anion Gap 10.9 mEq/L (5-15); Aspartate Amino Transferase 25 U/L (14-36); Bilirubin,Total 0.9 mg/dl (0.2-1.3); Blood Urea Nitrogen 14 mg/dl (7-17); Carbon Dioxide 26 mmol/L (22.0-30.0); Chloride 104 mmol/L (98-107); Chol/HDL Ratio 3.4 (1-3.5); Cholesterol 183 mg/dl (140-200); Estimated Glomerular Filt Rate 111 ml/min (>60); GFR (African American) 134 ML/MIN (>60); Globulin 2.8 g/dL (1.3-3.2); Glucose 94 mg/dl (74-100); HDL Cholesterol 54 mg/dl (40-60); Potassium 3.9 mmoL/L (3.5-5.1); Sodium 137 mmol/L (136-145); Total Protein,Serum 6.9 g/dl (6.3-8.2); Triglycerides 114 mg/dl (30-150); VLDL Cholesterol 23 mg/dL (0-40)
[2022-09-20 16:39] LABS: 25-OH Vitamin D, Total < 12.8 ng/mL (30-100)
[2022-09-20 16:42] LABS: Monoscreen (Rapid) Negative (Negative)
[2022-09-20 16:51] LABS: Thyroid Stimulating Hormone 1.32 uIU/mL (0.465-4.68)
[2022-09-22 15:28] LABS: EBV Ab VCA, IgG >600.0 U/mL (0.0-17.9); EBV Ab VCA, IgM <36.0 U/mL (0.0-35.9)
== END ==
PROVIDERS: PCP Physician Assistant; Visit Provider Physician Assistant
DX: R10.12 Left upper quadrant pain (principal); E55.9 Vitamin D deficiency, unspecified
CPT/HCPCS: 80053; 80061; 82306; 84443; 85025; 86318; 86664; 86665

== ENCOUNTER → 2022-09-27 07:23 | Outpatient (CLI) | payer BC, SELFPAY ==
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
== END ==
PROVIDERS: PCP Physician Assistant; Visit Provider Physician Assistant
DX: R10.12 Left upper quadrant pain (principal)
CPT/HCPCS: 74176

== ENCOUNTER → 2022-09-28 09:10 | Outpatient (CLI) | payer BC, SELFPAY ==
[2022-10-15 19:49] LABS: APTT 25.6; Antithrombin Activity,Plasma 128; Factor VIII Activity 89; Homocyst(e)ine 6.6; Protein C Activity 195; Protein S Antigen,Free 113
[2022-10-15 19:50] LABS: Activated Protein C Resist 2.7; Anti-Cardiolipin Antibody IgG <10; Hexagonal Phase Phospholipid 1
[2022-10-15 19:51] LABS: Anti-Cardiolipin Antibody IgM <10; Beta-2 Glycoprotein I Ab, IgA <10; Beta-2 Glycoprotein I Ab, IgG <10; Beta-2 Glycoprotein I Ab, IgM <10
== END ==
PROVIDERS: PCP Physician Assistant; Visit Provider Physician Assistant
DX: R10.12 Left upper quadrant pain (principal)
CPT/HCPCS: 36415; 83090; 85240; 85300; 85302; 85306; 85598; 85613; 85730; 86146; 86147

== ENCOUNTER → 2023-01-11 09:07 | Outpatient (CLI) | payer BC, SELFPAY ==
[2023-01-11 10:11] LABS: HCG,Quantitative < 2 mIU/ml (0-5.42)
== END ==
PROVIDERS: PCP Emergency Medicine; Visit Provider Nurse Practitioner Family
DX: N92.6 Irregular menstruation, unspecified (principal); Z32.00 Encounter for pregnancy test, result unknown
CPT/HCPCS: 36415; 84702

== ENCOUNTER → 2023-01-19 07:48 | Outpatient (CLI) | payer BC, SELFPAY ==
--- NOTE | 2023-01-19 07:49 | US_ITS ---
FINAL REPORT CLINICAL HISTORY: lower abd pressure FINDINGS: Transvaginal sonographic images of the pelvis were obtained. The uterus measures 7.3 x 5.1 x 5.0. The endometrium measures 10 mm, which is within normal limits. No uterine mass is identified. The right ovary is not well seen. The left ovary measures 1.9 x 2.2 x 2.3 cm. There is a 1 cm follicle in the left ovary. Normal blood flow seen. There is a small amount of free fluid in the cul-de-sac, likely physiologic. IMPRESSION: Small amount of free fluid, likely physiologic. Reviewed, Interpreted and Dictated by Chaitanya Hurley III, MD Transcribed by Gabriela Morales Authenticated and [facility]
--- NOTE | 2023-01-19 07:49 | US_ITS ---
FINAL REPORT CLINICAL HISTORY: abdominal pressure, she feels movement in her abdo FINDINGS: Sonographic images of the abdomen were obtained. There is mild fatty infiltration of the liver. There is a 7 mm hyperechoic focus in the posterior right hepatic lobe which is nonspecific, may represent a hemangioma. The gallbladder has an unremarkable appearance without evidence of gallstones. There is no evidence of biliary ductal dilatation. The common hepatic duct measures 2 mm, which is within normal limits. Limited images of the pancreas are unremarkable. The spleen size is normal. The right kidney measures 9.9 cm in length. The left kidney measures 9.2 cm in length. There is mild bilateral renal cortical thinning. There is no evidence of hydronephrosis. The aorta has an unremarkable appearance. Limited images of the inferior vena cava are unremarkable. IMPRESSION: Fatty liver with a hyperechoic focus in the posterior right hepatic lobe, may represent a hemangioma. Mild bilateral renal cortical thinning. Reviewed, Interpreted and Dictated by Chaitanya Hurley III, MD Transcribed by Gabriela Morales Authenticated and [facility]
== END ==
PROVIDERS: PCP Emergency Medicine; Visit Provider Nurse Practitioner Family
DX: R10.9 Unspecified abdominal pain (principal)
CPT/HCPCS: 76700; 76830

== ENCOUNTER → 2023-02-01 09:49 | Outpatient (CLI) | payer BC, SELFPAY ==
--- NOTE | 2023-02-01 09:49 | MR_ITS ---
FINAL REPORT CLINICAL HISTORY: possible hemangioma liver per patient she feels a churring feeling in her stomach told she has a fatty liver FINDINGS: Multi planar MR imaging of the abdominal aorta was obtained with and without contrast. The liver parenchyma is homogeneous. The liver is mildly enlarged measuring 19 cm in craniocaudal dimension. There may a single tiny 5 mm signal abnormality adjacent to the falciform ligament. Finding is best seen on image 29 of series 9. This appears to enhance on the postcontrast images, may represent a tiny hemangioma. The spleen, pancreas, adrenals, and kidneys appear unremarkable. There is no mass or adenopathy. IMPRESSION: Signal abnormality adjacent to the falciform ligament consistent with a small hemangioma. Reviewed, Interpreted and Dictated by Hoang Deras MD Transcribed by Gabriela Morales Authenticated and [facility]
== END ==
PROVIDERS: PCP Emergency Medicine; Visit Provider Nurse Practitioner Family
DX: D18.03 Hemangioma of intra-abdominal structures (principal)
CPT/HCPCS: 74183; A9576

== ENCOUNTER → 2023-06-24 09:13 | Outpatient (CLI) | payer BC, SELFPAY ==
[2023-06-24 12:35] LABS: Basophils # 0.1 K/mm3 (0-0.2); Basophils % 0.6 % (0.1-2.0); Eosinophils # 0.2 K/mm3 (0.0-0.4); Eosinophils % 2.9 % (0.1-12.0); Hematocrit 41.2 % (37.0-47.0); Hemoglobin 14.4 g/dL (12.2-16.2); Lymphocytes # 2.3 K/mm3 (0.7-4.5); Lymphocytes % 28.3 % (10-50); Mean Corpuscular Hemoglobin 34.1 pg (27.0-31.2); Mean Corpuscular Volume 97.5 fl (81-99); Mean Platelet Volume 9.5 fl (7.4-10.4); Monocytes # 0.5 K/mm3 (0.1-1.0); Monocytes % 6.3 % (1.7-9.3); Neutrophils % 61.9 % (37.0-80.0); Platelet Count 255 K/mm3 (142-424); Red Blood Count 4.22 M/mm3 (4.20-5.40); Red Cell Distribution Width 12.7 % (11.5-17.5); White Blood Count 8.1 K/mm3 (4.8-10.8)
[2023-06-24 12:39] LABS: Alanine Aminotransferase 27 U/L (12-78); Albumin Level 4.2 g/dl (3.5-5.0); Albumin/Globulin Ratio 1.5 (1.1-1.8); Alkaline Phosphatase 57 U/L (38-126); Anion Gap 13.3 mEq/L (5-15); Aspartate Amino Transferase 30 U/L (14-36); Bilirubin,Total 0.4 mg/dl (0.2-1.3); Blood Urea Nitrogen 17 mg/dl (7-17); Calcium 8.8 mg/dl (8.4-10.2); Carbon Dioxide 25 mmol/L (22.0-30.0); Chloride 105 mmol/L (98-107); Chol/HDL Ratio 3.3 (1-3.5); Cholesterol 174 mg/dl (140-200); Estimated Glomerular Filt Rate 110 ml/min (>60); GFR (African American) 133 ML/MIN (>60); Globulin 2.8 g/dL (1.3-3.2); Glucose 102 mg/dl (74-100); HDL Cholesterol 53 mg/dl (40-60); Potassium 4.3 mmoL/L (3.5-5.1); Sodium 139 mmol/L (136-145); Triglycerides 95 mg/dl (30-150); VLDL Cholesterol 19 mg/dL (0-40)
[2023-06-24 12:56] LABS: T4 (Thyroxine) 7.5 ug/dl (5.53-11.0)
[2023-06-24 12:57] LABS: 25-OH Vitamin D, Total 32.7 ng/mL (30-100)
[2023-06-24 13:10] LABS: Thyroid Stimulating Hormone 2.22 uIU/mL (0.465-4.68)
== END ==
PROVIDERS: PCP Emergency Medicine; Visit Provider Emergency Medicine
DX: D18.03 Hemangioma of intra-abdominal structures (principal)
CPT/HCPCS: 80053; 80061; 82306; 84436; 84443; 85025

== ENCOUNTER 2023-06-25 19:06 | Emergency (ER) | payer BC, SELFPAY ==
[2023-06-25 19:27] VITALS: BP 159/103; PULSE 64; RESP 20; TEMP 36.5; O2SAT 95; BMI 25.4
--- NOTE | 2023-06-25 19:49 | CT_ITS ---
PROCEDURE INFORMATION: Exam: CT Abdomen And Pelvis With Contrast Exam date and time: 06/25/2023 8:11 PM Age: 43 years old Clinical indication: Abdominal pain; Additional info: Rlq pain TECHNIQUE: Imaging protocol: Computed tomography of the abdomen and pelvis with contrast. Radiation optimization: All CT scans at this facility use at least one of these dose optimization techniques: automated exposure control; mA and/or kV adjustment per patient size (includes targeted exams where dose is matched to clinical indication); or iterative reconstruction. Contrast material: ISOVUE; Contrast volume: 75 ml; Contrast route: IV; REPORTING DATA: Count of CT and Cardiac NM exams in prior 12 months: This patient has received [address] and 0 known cardiac nuclear medicine studies in the 12 months prior to the current study. COMPARISON: MR ABDOMEN WO/W CON 02/01/2023 10:38 AM FINDINGS: Lungs: There are areas of subpleural reticulation throughout the visualized lungs which are nonspecific. Liver: There are low-density lesions in the liver which most likely reflect a combination of cysts and/or hemangiomas. Gallbladder and bile ducts: Normal. No calcified stones. No ductal dilation. Pancreas: The pancreas is of normal size and morphology, without evidence of masses, cysts, or calcifications. The pancreatic duct is not dilated. Spleen: There are multiple calcifications in the spleen most likely reflects small granulomas. Adrenal glands: The adrenal glands appear normal. Kidneys and ureters: Both kidneys are of normal size and show uniform attenuation. There are no renal masses, cysts, or calculi. The adrenal glands appear normal. Stomach and bowel: The stomach, small bowel, and colon are well-distended and show no evidence of wall thickening, masses, or obstruction. Appendix: The appendix is normal. Intraperitoneal space: There is a small volume of free fluid in the pelvis. Vasculature: Embolization plug is seen within the splenic artery. Lymph nodes: No enlarged or pathological lymph nodes are identified in the abdomen or pelvis. Urinary bladder: Small fat deposition in the urinary bladder wall, likely chronic inflammatory. Reproductive: No significant pathology. Bones/joints: The visualized osseous structures of the abdomen and pelvis appear intact and normal for patient age with no evidence of fractures or lytic or sclerotic lesions. Soft tissues: There is a small fat containing umbilical hernia. IMPRESSION: 1. Normal appendix with small volume free fluid in the pelvis. 2. Otherwise, incidental findings as above.
--- NOTE | 2023-06-25 19:51 | PC.NURSE ---
rounded on pt no needs at this time
[2023-06-25 19:53] LABS: Microscopic, Urine URINE MICROSCOPIC (MICROSCOPIC)
[2023-06-25 19:55] LABS: Basophils # 0.1 K/mm3 (0-0.2); Basophils % 0.6 % (0.1-2.0); Eosinophils # 0.3 K/mm3 (0.0-0.4); Eosinophils % 2.3 % (0.1-12.0); Hematocrit 38.4 % (37.0-47.0); Hemoglobin 13.7 g/dL (12.2-16.2); Lymphocytes # 3.8 K/mm3 (0.7-4.5); Mean Corpuscular HGB Conc 35.7 g/dL (31.8-35.4); Mean Corpuscular Hemoglobin 33.7 pg (27.0-31.2); Mean Corpuscular Volume 94.3 fl (81-99); Mean Platelet Volume 9.1 fl (7.4-10.4); Monocytes # 0.6 K/mm3 (0.1-1.0); Monocytes % 5.5 % (1.7-9.3); Neutrophils # 6.4 K/mm3 (1.8-7.8); Neutrophils % 57.5 % (37.0-80.0); Platelet Count 253 K/mm3 (142-424); Red Blood Count 4.07 M/mm3 (4.20-5.40); Red Cell Distribution Width 12.6 % (11.5-17.5); White Blood Count 11.1 K/mm3 (4.8-10.8)
--- NOTE | 2023-06-25 19:55 | HMH.EDGENADL ---
Discharge Plan Disposition Patient Disposition: Home, Self-Care Chief Complaint: Abdominal Pain Prescriptions Prescriptions: No Action mupirocin 2 % ointment 1 applic topical BID Qty: 22 0RF minocycline 100 mg capsule 100 mg PO BID Qty: 20 0RF cephalexin 500 mg capsule 500 mg PO TID Qty: 21 0RF escitalopram oxalate [Lexapro] 10 mg tablet 10 mg PO DAILY Qty: 30 1RF clonazepam [Klonopin] 0.5 mg tablet 0.5 mg PO BID Qty: 60 1RF cholecalciferol (vitamin D3) 1,250 mcg (50,000 unit) capsule 1,250 mcg PO WEEKLY Qty: 14 3RF calcium carbonate-vitamin D3 1,000 mg-20 mcg (800 unit) tablet 1 tab PO BID Qty: 180 0RF Referrals Follow up/Referrals: Martin Buck MD [Primary Care Provider] - See instructions Activity Restrictions/Add. Instructions Additional Instructions/Restrictions: At this time it was felt you are safe to be discharged home. If new or worsening symptoms please do not hesitate to return the emergency department. If symptoms persist please follow-up with your family doctor as you are able. Clinical Impressions Clinical Impression: Abdominal pain Instructions Patient Instructions: DI for Acute Abdominal Pain Discharge ED Provider: Osito Bae General Adult HPI General Chief complaint: Abdominal Pain Stated complaint: lower RT side abd pain Time Seen by Provider: 06/25/23 19:49 Mode of Arrival: Ambulatory Source of Information: Patient Limitations: No Limitations Description of Symptoms (Recalled from ER Triage Doc. by RN): pt states about 20 minutes ago she started having severe 10/10 RLQ pain. pt denies N/V/D. pt states her last BM was today and normal. pt states her RLQ pain is sharp, tender to palpation and constant. pt is moaning out in pain. 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 pt saw her PCP, , in office yesterday. History of Present Illness HPI narrative: Patient is a 43-year-old female with no pertinent past medical history presents emergency department for evaluation of right lower quadrant abdominal pain. Onset was acute, severe, 1 hour prior to arrival. No associated vomiting. Last menstrual period approximately 1 month ago. No vaginal discharge or bleeding, no dysuria. Symptoms have waxed and waned and are currently patient is not in severe pain. Related Data Previous Rx's Medication Instructions Recorded cholecalciferol (vitamin D3) 1,250 1,250 mcg PO WEEKLY #14 caps 09/22/22 mcg (50,000 unit) capsule calcium carbonate 1,000 mg-vitamin 1 tab PO BID #180 tabs 09/23/22 D3 20 mcg (800 unit) tablet cephalexin 500 mg capsule 500 mg PO TID #21 caps 06/24/23 clonazepam 0.5 mg tablet (Klonopin) 0.5 mg PO BID #60 tabs 06/24/23 escitalopram oxalate 10 mg tablet 10 mg PO DAILY #30 tabs 06/24/23 (Lexapro) minocycline 100 mg capsule 100 mg PO BID #20 caps 06/24/23 mupirocin 2 % topical ointment 1 applic topical BID #22 grams 06/24/23 Allergies Allergy/AdvReac Type Severity Reaction Status Date / Time codeine Allergy Verified 06/25/23 19:[address] [facility] Disclaimer: The information contained in this section may have been updated after the patient was seen, as this information can be updated by other users. Medical History Spleen laceration Social History Smoking Status: Current every day smoker tobacco type: e-cigarettes alcohol intake: never substance use type: denies use current occupational status: unemployed Travel in the last 8 weeks: None household members: children housing: apartment ROS Obtained: Yes Systems reviewed as appropriate & no additional complaints except as documented Physical Exam General General appearance: alert and in no apparent distress Head Head exam: atraumatic and normocephalic Eye Eye exam: Present PERRL and EOMI ENT ENT exam: Pr
[2023-06-25 19:56] LABS: Chloride 107 mmol/L (98-107); Potassium 3.8 mmoL/L (3.5-5.1); Sodium 139 mmol/L (136-145)
[2023-06-25 19:59] LABS: Alanine Aminotransferase 30 U/L (12-78); Albumin Level 4.2 g/dl (3.5-5.0); Albumin/Globulin Ratio 1.6 (1.1-1.8); Alkaline Phosphatase 51 U/L (38-126); Anion Gap 9.8 mEq/L (5-15); Aspartate Amino Transferase 31 U/L (14-36); Blood Urea Nitrogen 17 mg/dl (7-17); Calcium 9.2 mg/dl (8.4-10.2); Carbon Dioxide 26 mmol/L (22.0-30.0); Creatinine Clearance Estimated 102 mL/min (50-200); Estimated Glomerular Filt Rate 92 ml/min (>60); GFR (African American) 112 ML/MIN (>60); Globulin 2.7 g/dL (1.3-3.2); Glucose 110 mg/dl (74-100); HCG Qualitative, Serum Negative (Negative); Lipase 84 U/L (23-300); Total Protein,Serum 6.9 g/dl (6.3-8.2)
[2023-06-25 20:13] LABS: Bilirubin,Total 0.1 mg/dl (0.2-1.3)
--- NOTE | 2023-06-25 20:13 | PC.NURSE ---
jazmín went to CT and returned from CT at this time
[2023-06-25 20:14] LABS: Appearance,Urine CLEAR (Clear); Bilirubin,Urine Negative (Negative); Blood, Urine Negative (Negative); Color,Urine YELLOW (Yellow); Glucose,Urine (UA) Negative (Negative); Ketones,Urine Negative (Negative); Leukocyte Esterase,Urine Negative (Negative); Nitrate,Urine Negative (Negative); Protein,Urine Negative (Negative); Specific Gravity, Urine 1.025 (1.005-1.030); Urobilinogen,Urine 0.2 EU/dl (0.2)
[2023-06-25 20:15] LABS: Bacteria,Urine Trace /lpf; Hyaline Casts,Urine Occasional #/lpf (0)
[2023-06-25 20:48] VITALS: BP 134/87; PULSE 55; RESP 16; TEMP 36.6
== END 2023-06-25 20:57 | disposition home or self-care (01) ==
PROVIDERS: Emergency Provider Emergency Medicine; PCP Emergency Medicine
DX: R10.31 Right lower quadrant pain (principal); F17.290 Nicotine dependence, other tobacco product, uncomplicated
CPT/HCPCS: 74177; 80053; 81001; 83690; 84703; 85025; 99284; Q9967

== ENCOUNTER → 2023-06-30 15:20 | Outpatient (CLI) | payer BC, SELFPAY ==
--- NOTE | 2023-06-30 15:21 | US_ITS ---
PROCEDURE: US TRANSVAGINAL CLINICAL INDICATION: pelvic and right lower quad pain COMPARISON: US US TRANSVAGINAL from 01/19/2023 FINDINGS: Transvaginal sonographic images of the pelvis were obtained. UTERUS: 6.2 cm x 5.7 cmx 4.8 cm with a combined endometrial thickness of 8.1mm. The uterus is retroverted and retroflexed. LEFT OVARY: 2.7 cmx2.3 cmx1.9cm with a volume of 6.1ml. Within the left ovary there is a corpus luteum. It measures 1.2 cm x 0.9 cm x 1.1 cm. RIGHT OVARY: 2.1 cmx 1.9 cmx1.3 cm with a volume of 2.6ml. There are several small follicles in the right ovary. The largest measures 0.8 cm Both ovaries are seen and appear normal. Doppler flow to both ovaries are seen. There is no fluid in the cul-de-sac. IMPRESSION: 1. Retroverted, retroflexed uterus normal in shape and size. 2. Both ovaries are seen and appear normal. Both ovaries have small follicles. Likely corpus luteum in the left ovary. 3. No fluid in the cul-de-sac. Dictated by: Ashish Mora MD 06/30/2023 18:07 Ashish Mora MD in OV 06/30/2023 18:07
== END ==
PROVIDERS: PCP Emergency Medicine; Visit Provider Nurse Practitioner Obstetrics & Gynecology
DX: R10.2 Pelvic and perineal pain (principal); R10.31 Right lower quadrant pain
CPT/HCPCS: 76830

== ENCOUNTER 2023-08-15 12:30 | Emergency (ER) | payer BC, SELFPAY ==
[2023-08-15 12:31] VITALS: BP 136/93; PULSE 67; RESP 16; TEMP 36.4; O2SAT 97; BMI 25.4
[2023-08-15 12:52] LABS: Influenza A, PCR Not Detected (NotDetected); Influenza B, PCR Not Detected (NotDetected)
[2023-08-15 13:00] VITALS: BP 125/80; PULSE 61; RESP 20; O2SAT 96
--- NOTE | 2023-08-15 13:09 | XR_ITS ---
FINAL REPORT CLINICAL HISTORY: Cough, feeling unwell COMPARISON: 11/25/2021 FINDINGS: The heart size is normal. The mediastinum is normal. There is no focal infiltrate or edema. There are no pleural effusions. There is no pneumothorax. There is no osseous abnormality. IMPRESSION: No acute cardiopulmonary process Reviewed, Interpreted and Dictated by Hoang Deras MD Transcribed by Nida Reddy Authenticated and [facility]
[2023-08-15 13:13] LABS: Strep Scrn Group A (Rapid) Negative (Negative)
--- NOTE | 2023-08-15 13:19 | PC.NURSE ---
RAD at for CXR
[2023-08-15 13:23] LABS: Coronavirus 19, PCR Detected (NotDetected)
[2023-08-15 13:54] VITALS: BP 127/78; PULSE 64; RESP 18; TEMP 36.6; O2SAT 97
--- NOTE | 2023-08-15 13:54 | HMH.EDGENADL ---
Discharge Plan Disposition Patient Disposition: Home, Self-Care Condition: Good Prescriptions Prescriptions: New pseudoephedrine HCl 30 mg capsule (abuse-resistant) 30 mg PO Q6H Qty: 120 0RF No Action mupirocin 2 % ointment 1 applic topical BID Qty: 22 0RF minocycline 100 mg capsule 100 mg PO BID Qty: 20 0RF cephalexin 500 mg capsule 500 mg PO TID Qty: 21 0RF escitalopram oxalate [Lexapro] 10 mg tablet 10 mg PO DAILY Qty: 30 1RF clonazepam [Klonopin] 0.5 mg tablet 0.5 mg PO BID Qty: 60 1RF cholecalciferol (vitamin D3) 1,250 mcg (50,000 unit) capsule 1,250 mcg PO WEEKLY Qty: 14 3RF calcium carbonate-vitamin D3 1,000 mg-20 mcg (800 unit) tablet 1 tab PO BID Qty: 180 0RF Referrals Follow up/Referrals: Kanchan Caban PA [Primary Care Provider] - See instructions Activity Restrictions/Add. Instructions Additional Instructions/Restrictions: Please follow-up with your primary care provider. Please return to the emergency department if you develop any new or worsening symptoms or become concerned for your health. As we discussed, you can continue to take Tylenol, ibuprofen every 6 hours as needed for pain, fever control. Clinical Impressions Clinical Impression: COVID-19 virus infection, Upper respiratory infection, viral Stand Alone Forms Stand Alone Forms: Work/School Release Discharge ED Provider: Jovi Raya I General Adult HPI General Chief complaint: Upper Respiratory Infection Stated complaint: nose,throat and chest area pain Time Seen by Provider: 08/15/23 12:39 Mode of Arrival: Ambulatory Source of Information: Patient Limitations: No Limitations Description of Symptoms (Recalled from ER Triage Doc. by RN): c/o runny/stuffy nose, sore throat and cough with yellow mucus since Tuesday. History of Present Illness HPI narrative: Patient is a 43-year-old female presenting to the emergency department with a 3-day history of viral upper respiratory infectious symptoms. History was conducted with the patient at bedside. She reports that she has been symptomatic for the past 3 days with cough, congestion, runny nose as well as headache, sinus pressure. She has been feeling generally weak, worn down with muscle aches pains. She denies any chest pain, shortness of breath, difficulty breathing, abdominal pain. She does report some nausea. Denies abdominal pain, dysuria, urinary urgency and frequency. Patient states that she has also been coughing, productive of sputum. She was concerned that she could possibly have COVID again. Last had COVID several years ago. Denies any changes in vision, paresthesias, focal weakness. Related Data Previous Rx's Medication Instructions Recorded cholecalciferol (vitamin D3) 1,250 1,250 mcg PO WEEKLY #14 caps 09/22/22 mcg (50,000 unit) capsule calcium carbonate 1,000 mg-vitamin 1 tab PO BID #180 tabs 09/23/22 D3 20 mcg (800 unit) tablet cephalexin 500 mg capsule 500 mg PO TID #21 caps 06/24/23 clonazepam 0.5 mg tablet (Klonopin) 0.5 mg PO BID #60 tabs 06/24/23 escitalopram oxalate 10 mg tablet 10 mg PO DAILY #30 tabs 06/24/23 (Lexapro) minocycline 100 mg capsule 100 mg PO BID #20 caps 06/24/23 mupirocin 2 % topical ointment 1 applic topical BID #22 grams 06/24/23 pseudoephedrine HCl 30 mg capsule 30 mg PO Q6H #120 ea 08/15/23 (abuse-resistant) Allergies Allergy/AdvReac Type Severity Reaction Status Date / Time codeine Allergy Verified 06/29/23 14:32 [facility] Disclaimer: The information contained in this section may have been updated after the patient was seen, as this information can be updated by other users. Medical History Spleen laceration Family History (Updated 06/29/23 @ 14:35 by Cynthia Fontaine CMA) Other Cancer Diabetes Hyperlipidemia Hypertension Thyroid disorder Social History (Reviewed 06/29/23 @ 14:33 by Cynthia Fontaine
== END 2023-08-15 13:54 | disposition home or self-care (01) ==
PROVIDERS: Emergency Provider Emergency Medicine; PCP Physician Assistant
DX: U07.1 COVID-19 (principal); J02.9 Acute pharyngitis, unspecified; R05.9 Cough, unspecified; R51.9 Headache, unspecified; F17.290 Nicotine dependence, other tobacco product, uncomplicated
CPT/HCPCS: 71045; 87430; 87636; 99283

== ENCOUNTER 2024-01-12 08:08 | Emergency (ER) | payer BC, SELFPAY ==
[2024-01-12 08:18] VITALS: BP 118/74; PULSE 56; RESP 20; TEMP 36.5; O2SAT 96; BMI 25.9
--- NOTE | 2024-01-12 08:21 | ED_ITS ---
Discharge Plan Disposition Patient Disposition: Home, Self-Care Condition: Good Prescriptions Prescriptions: New amoxicillin 500 mg capsule 500 mg PO BID 10 Days Qty: 20 0RF cetirizine [24Hour Allergy] 10 mg tablet 10 mg PO DAILY PRN (Reason: allergy symptoms) Qty: 20 0RF No Action mupirocin 2 % ointment 1 applic topical BID Qty: 22 0RF minocycline 100 mg capsule 100 mg PO BID Qty: 20 0RF cephalexin 500 mg capsule 500 mg PO TID Qty: 21 0RF escitalopram oxalate [Lexapro] 10 mg tablet 10 mg PO DAILY Qty: 30 1RF clonazepam [Klonopin] 0.5 mg tablet 0.5 mg PO BID Qty: 60 1RF cholecalciferol (vitamin D3) 1,250 mcg (50,000 unit) capsule 1,250 mcg PO WEEKLY Qty: 14 3RF calcium carbonate-vitamin D3 1,000 mg-20 mcg (800 unit) tablet 1 tab PO BID Qty: 180 0RF pseudoephedrine HCl 30 mg capsule (abuse-resistant) 30 mg PO Q6H Qty: 120 0RF ondansetron 4 mg tablet,disintegrating 4 mg PO Q8H 4 Days Qty: 12 0RF Referrals Follow up/Referrals: Kanchan Caban PA [Primary Care Provider] - See instructions Activity Restrictions/Add. Instructions Additional Instructions/Restrictions: You have been evaluated in the ED for your complaints. You may follow-up with your PCP in the next 3 to 5 days. Please return to ED for any new or worsening symptoms. I have written for amoxicillin. Also recommended Zyrtec or Claritin for your sinus issues. Clinical Impressions Clinical Impression: Acute left otitis media, Upper respiratory infection Instructions Patient Instructions: DI for Acute Bronchitis Discharge ED Provider: Kermit Mcclain General Adult HPI General Chief complaint: Upper Respiratory Infection Stated complaint: congestion, runny nose, ears blocked Time Seen by Provider: 01/12/24 08:16 Mode of Arrival: Ambulatory Source of Information: Patient Limitations: No Limitations Description of Symptoms (Recalled from ER Triage Doc. by RN): pt to ed c/o bilateral ear congestion and productive cough since tuesday. pt denies cp/soa. pt denies fever. History of Present Illness HPI narrative: 43-year-old female with no pertinent past medical history presents today for evaluation concerning cough, congestion and bilateral ear pain over the past few days. Denies having any fevers or chills. Tolerating oral intake without difficulty. Denies any chest pain or shortness of breath. No further complaints. Related Data Previous Rx's Medication Instructions Recorded cholecalciferol (vitamin D3) 1,250 1,250 mcg PO WEEKLY #14 caps 09/22/22 mcg (50,000 unit) capsule calcium carbonate 1,000 mg-vitamin 1 tab PO BID #180 tabs 09/23/22 D3 20 mcg (800 unit) tablet cephalexin 500 mg capsule 500 mg PO TID #21 caps 06/24/23 clonazepam 0.5 mg tablet (Klonopin) 0.5 mg PO BID #60 tabs 06/24/23 escitalopram oxalate 10 mg tablet 10 mg PO DAILY #30 tabs 06/24/23 (Lexapro) minocycline 100 mg capsule 100 mg PO BID #20 caps 06/24/23 mupirocin 2 % topical ointment 1 applic topical BID #22 grams 06/24/23 ondansetron 4 mg disintegrating 4 mg PO Q8H 4 days #12 tabs 08/15/23 tablet pseudoephedrine HCl 30 mg capsule 30 mg PO Q6H #120 ea 08/15/23 (abuse-resistant) amoxicillin 500 mg capsule 500 mg PO BID 10 days #20 caps 01/12/24 cetirizine 10 mg tablet (24Hour 10 mg PO DAILY PRN allergy 01/12/24 Allergy) symptoms #20 tabs Allergies Allergy/AdvReac Type Severity Reaction Status Date / Time codeine Allergy Verified 06/29/23 14:32 [facility] Disclaimer: The information contained in this section may have been updated after the patient was seen, as this information can be updated by other users. Medical History Spleen laceration Family History (Updated 06/29/23 @ 14:35 by Cynthia Fontaine CMA) Other Cancer Diabetes Hyperlipidemia Hypertension Thyroid disorder Social History Smoking Status: Current every day smoker tobacco type: e-cigarettes alcohol intake: never substance use type: denies use current occupational status: unemployed Travel in the last 8 weeks: None household members: children housing: apartment ROS Obtained: Yes All systems reviewed & no additional complaints except as documented Physical Exam General General appearance: alert and in no apparent distress Head Head exam: atraumatic and normocephalic Eye Eye exam: Present normal appearance, PERRL and EOMI ENT ENT exam: Present normal oropharynx and mucous membranes moist Expanded ENT Exam TM/Canal exam: Right TM: erythema and effusion and Bilateral TM: bulging Neck Neck exam: Present full ROM; Absent meningismus Respiratory Respiratory exam: Absent respiratory distress, wheezes, stridor or accessory muscle use Cardiovascular Cardiovascular exam: Present normal rhythm Abdominal Exam Abdominal exam: Present soft; Absent distention, tenderness, guarding, rebound or rigidity Neurological Exam Neurological exam: Present alert, oriented X3 and CN II-XII intact; Absent motor sensory deficit Psychiatric Psychiatric exam: Present normal affect and normal mood Skin Skin exam: Present warm and dry Medical Decision Making Medical Records Medical records reviewed: Yes I reviewed the patient's medical records. Tyshawn Inquiry Pt receiving controlled substance: No Tyshawn was queried for this patient: No Vital Signs: 01/12/24 08:18 Temperature 97.7 F Temperature Source Oral Pulse Rate [Left Radial] 56 L Respiratory Rate 20 Blood Pressure [Right Arm] 118/74 Blood Pressure Mean [Right Arm] 88 02 Sat by Pulse Oximetry 96 Oxygen Delivery Method Room Air Medical Decision Narrative: 43-year-old female with no pertinent past medical history presents today for evaluation concerning cough, congestion and bilateral ear pain over the past few days. On assessment she was medically stable and in no acute distress. Bulging of tympanic membrane's bilaterally. Mild erythema of the left tympanic membrane. Effusion noted on the right. Oropharynx clear. Chest clear to station bilaterally. Differential diagnoses include but limited to otitis media, viral URI, among others. Discussed with patient clinical diagnosis of otitis media and ear effusion and plan to treat with amoxicillin. Will also prescribe cetirizine to assist with her sinus issues. She verbalized understanding agreement with plan. Provided with return precautions. Subsequently discharged hemodynamically stable and in no acute distress Critical Care Critical Care Time Critical Care Time: No
[2024-01-12 08:29] VITALS: BP 118/74; PULSE 74; RESP 18; TEMP 36.7; O2SAT 98
== END 2024-01-12 08:29 | disposition home or self-care (01) ==
PROVIDERS: Emergency Provider Emergency Medicine; PCP Physician Assistant
DX: H66.92 Otitis media, unspecified, left ear (principal); J06.9 Acute upper respiratory infection, unspecified; R05.9 Cough, unspecified; R09.81 Nasal congestion
CPT/HCPCS: 99283

== ENCOUNTER 2024-09-20 08:50 | Emergency (ER) | payer MEDICAID, SELFPAY ==
[2024-09-20 08:51] VITALS: BP 146/88; PULSE 64; RESP 18; TEMP 36.7; O2SAT 100; BMI 23.6
--- NOTE | 2024-09-20 08:58 | PC.NURSE ---
dr sullivan at bedside
--- NOTE | 2024-09-20 09:04 | HMH.EDGENADL ---
Discharge Plan Disposition Patient Disposition: Home, Self-Care Prescriptions Prescriptions: New methocarbamol 750 mg tablet 1,500 mg PO TID Qty: 90 0RF lidocaine 5 % adhesive patch,medicated 1 patch topical DAILY Qty: 15 0RF Rx Instructions: leave on most painful area for up to 12 hrs No Action medroxyprogesterone 150 mg/mL suspension 150 mg IM [id number] Qty: 1 3RF clonazepam [Klonopin] 0.5 mg tablet 0.5 mg PO DAILY PRN (Reason: anxiety) Qty: 30 1RF Referrals Follow up/Referrals: Mat Urban APRN [Primary Care Provider] - See instructions Activity Restrictions/Add. Instructions Additional Instructions/Restrictions: Use Tylenol 1000 mg and ibuprofen 400 mg every 6 hours for pain. Use Robaxin as needed for muscle relaxation. Use lidocaine patches for pain as well. Follow-up with primary care doctor. Please return the emerged part with any new, concerning, worsening symptoms including but not limited to numbness or tingling in your groin or your legs, difficulty urinating or urinating on yourself, stool incontinence, or inability to walk. Clinical Impressions Clinical Impression: Back pain Qualifiers: Back pain location: low back pain Chronicity: acute Back pain laterality: bilateral Sciatica presence: without sciatica Qualified Code(s): M54.50 - Low back pain, unspecified Instructions Patient Instructions: DI for Low Back Pain Print Language Print Language: Urdu Discharge ED Provider: Manjit Brown General Adult HPI General Chief complaint: Back Pain/Injury Stated complaint: Back Pain Time Seen by Provider: 09/20/24 08:55 Mode of Arrival: Ambulatory Source of Information: Patient Limitations: No Limitations Description of Symptoms (Recalled from ER Triage Doc. by RN): back pain started last night History of Present Illness HPI narrative: This is a 44-year-old female with no significant past medical history who presents with low back pain. States that she has been lifting wood to heat her house and felt a pop in her lower back after bending over yesterday. Reports worsening pain in her lower back and in her left leg. Denies any neuropathic symptoms such as numbness or tingling or shooting pain down the leg. Denies any urinary incontinence or retention. No fecal incontinence. Has been ambulatory. Related Data Previous Rx's ?Medication ?Instructions ?Recorded clonazepam 0.5 mg tablet (Klonopin) 0.5 mg PO DAILY PRN anxiety #30 02/01/24 tabs medroxyprogesterone 150 mg/mL 150 mg IM [id number] #1 mL 05/29/24 intramuscular suspension lidocaine 5 % topical patch 1 patch topical DAILY #15 ea 09/20/24 methocarbamol 750 mg tablet 1,500 mg (2 x 750 mg) PO TID #90 09/20/24 tabs Allergies Allergy/AdvReac Type Severity Reaction Status Date / Time codeine Allergy Verified 05/29/24 08:56 [facility] Disclaimer: The information contained in this section may have been updated after the patient was seen, as this information can be updated by other users. Medical History Alopecia Generalized anxiety disorder Spleen laceration Surgical History (Updated 05/29/24 @ 09:01 by ESE Turner) History of surgery Family History Other Cancer Diabetes Hyperlipidemia Hypertension Thyroid disorder Social History Smoking Status: Current every day smoker tobacco type: e-cigarettes alcohol intake: never substance use type: former substance user current occupational status: unemployed Travel in the last 8 weeks: None household members: children housing: apartment Have you lived/traveled outside US in past 30 days?: No Contact w/someone who lives/traveled outside US past 30 days?: No Exposure to someone with infectious disease in past 14 days?: No Do you have a fever (greater than 100.4 F or 38 C)?: No Have you tested positive for COVID-19: No Exposed to someone with COVID-19 in past 14 days?: No Do you have a sore throat?: No Do you have a cough?: No Do you have any weakness?: No Do you have any diarrhea?: No Are you experiencing any unusual bleeding?: No Do you have any muscle aches/pain?: No Do you have any abdominal pain?: No Are you experiencing loss of taste or smell?: No Other Medical History Have you received the Flu Vaccine for this season: No Have you received the Pneumonia Vaccine: No ROS Obtained: Yes All systems reviewed & no additional complaints except as documented Physical Exam General General appearance: alert and in no apparent distress Eye Eye exam: Present normal appearance, PERRL and EOMI Respiratory Respiratory exam: Present normal lung sounds bilaterally; Absent respiratory distress Cardiovascular Cardiovascular exam: Present regular rate and normal rhythm Abdominal Exam Abdominal exam: Present soft and distention; Absent tenderness, guarding or rebound Extremities Exam Extremities exam: Present normal inspection Back Exam Back exam: Present normal inspection and tenderness (Bilateral lower back) Neurological Exam Neurological exam: Present alert and oriented X3 Skin Skin exam: Present warm and dry Medical Decision Making Medical Records Medical records reviewed: Yes I reviewed the patient's medical records. Screening: Per USPSTF and CDC recommendations, given the prevalence of disease in our region, it is our hospital?s policy to screen for HIV and viral Hepatitis for all patients aged 18 and over and those with ongoing risk factors. Tyshawn Inquiry Pt receiving controlled substance: No Vital Signs: 09/20/24 08:51 Temperature 98.0 F Temperature Source Oral Pulse Rate [Right] 64 Respiratory Rate 18 Blood Pressure [Right Arm] 146/88 H Blood Pressure Mean [Right Arm] 107 02 Sat by Pulse Oximetry 100 Orders (Tests/Meds): ED MEDICATIONS Discontinued Medications Generic Name Dose Route Start Last Admin Trade Name Freq PRN Reason Stop Dose Admin Acetaminophen 1,000 mg 09/20/24 09:00 Acetaminophen 500mg Tab PO 09/20/24 09:01 ONCE ONE Ibuprofen 400 mg 09/20/24 09:00 Ibuprofen 400 Mg Tablet PO 09/20/24 09:01 ONCE ONE Lidocaine 1 each 09/20/24 09:00 Lidocaine 5% Transdermal Patch TP 09/20/24 09:01 ONCE ONE Methocarbamol 1,500 mg 09/20/24 09:00 Methocarbamol 500mg Tablet PO 09/20/24 09:01 ONCE ONE Medical Decision Narrative: In summary, this 44-year-old female with no diagnosed past medical history presents to the emergency department today with acute low back pain that began yesterday after bending over to hand picker some wood. On initial evaluation patient is afebrile, hemodynamically stable, neurologically intact. Differential diagnosis includes but is not limited to muscle strain, compression fracture, disc herniation, cord compression syndrome. Patient had no red flag symptoms concerning for cord compression syndrome and a normal neurological exam. Most likely etiology is a muscle strain. Tender to the bilateral paraspinal musculature. Patient received Tylenol, ibuprofen, Robaxin, lidocaine patches for treatment. Patient was appropriate for discharge with prescription for Robaxin and lidocaine patches and instructions for dosing with Tylenol/ibuprofen. She is to follow-up with primary care doctor. Strict return precautions given. Critical Care Critical Care Time Critical Care Time: No
[2024-09-20] MEDS: IBUPROFEN 400 MG TABLET PO (09:08)
[2024-09-20] MEDS: ACETAMINOPHEN 500MG TAB 1000 MG PO (09:08)
[2024-09-20] MEDS: LIDOCAINE 5% TRANSDERMAL PATCH 1 EACH TP (09:08)
[2024-09-20] MEDS: METHOCARBAMOL 500MG TABLET 1500 MG PO (09:08)
[2024-09-20 09:23] VITALS: BP 116/78; PULSE 62; RESP 16; TEMP 36.7; O2SAT 99
== END 2024-09-20 09:27 | disposition home or self-care (01) ==
PROVIDERS: Emergency Provider Student in an Organized Health Care Education/Training Program; PCP Nurse Practitioner Family
DX: M54.50 Low back pain, unspecified (principal); M79.605 Pain in left leg
CPT/HCPCS: 99283

== ENCOUNTER 2025-05-10 13:02 | Emergency (ER) | payer MEDICAID, SELFPAY ==
[2025-05-10 13:13] VITALS: BP 139/85; PULSE 67; RESP 18; TEMP 36.8; O2SAT 99; BMI 24.5
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
[2025-05-10 14:03] LABS: Hematocrit 40.9 % (37.0-47.0); Hemoglobin 14.2 g/dL (12.2-16.2); Immature Granulocytes % 0.2 %; Mean Corpuscular HGB Conc 34.7 g/dL (31.8-35.4); Mean Corpuscular Hemoglobin 32.0 pg (27.0-31.2); Mean Corpuscular Volume 92.1 fl (81-99); Nucleated Red Blood Cells % 0 %; Platelet Count 249 K/mm3 (142-424); Red Blood Count 4.44 M/mm3 (4.20-5.40); Red Cell Distribution Width-SD 39.2 fL; White Blood Count 8.4 K/mm3 (4.8-10.8)
[2025-05-10 14:07] LABS: Albumin Level 4.7 g/dl (3.5-5.0); Chloride 105 mmol/L (98-107); Potassium 4.0 mmoL/L (3.5-5.1); Sodium 139 mmol/L (136-145)
[2025-05-10 14:09] LABS: Blood Urea Nitrogen 18 mg/dl (7-17); Creatinine Clearance Estimated 113 mL/min (50-200); Creatinine,Serum 0.60 mg/dl (0.52-1.04); Estimated Glomerular Filt Rate 109 ml/min (>60); GFR (African American) 132 ML/MIN (>60)
[2025-05-10 14:10] LABS: Alanine Aminotransferase 19 U/L (12-78); Albumin/Globulin Ratio 1.5 (1.1-1.8); Alkaline Phosphatase 51 U/L (38-126); Anion Gap 11.0 mEq/L (5-15); Aspartate Amino Transferase 29 U/L (14-36); Bilirubin,Total 0.8 mg/dl (0.2-1.3); Calcium 9.4 mg/dl (8.4-10.2); Carbon Dioxide 27 mmol/L (22.0-30.0); Globulin 3.2 g/dL (1.3-3.2); Glucose 85 mg/dl (74-100); Lipase 81 U/L (23-300); Total Protein,Serum 7.9 g/dl (6.3-8.2)
[2025-05-10 14:20] LABS: Coronavirus 19, PCR Not Detected (NotDetected); Influenza A, PCR Not Detected (NotDetected); Influenza B, PCR Not Detected (NotDetected)
--- NOTE | 2025-05-10 14:43 | PC.NURSE ---
Pt reports that she needs to leave at this time to go rock picker her kids. pt was informed that she had Ct scans ordered. pt requested that she wants to leave AMA.
[2025-05-10 14:44] VITALS: BP 139/85; PULSE 67; RESP 18; TEMP 36.8; O2SAT 98
[2025-05-10 14:50] LABS: HCG Qualitative, Serum Negative (Negative)
--- NOTE | 2025-05-10 17:27 | ED_ITS ---
Discharge Plan Disposition Patient Disposition: Eloped Condition: Good Chief Complaint: Nausea/Vomiting/Diarrhea Prescriptions Prescriptions: No Action medroxyprogesterone 150 mg/mL suspension 150 mg IM [id number] Qty: 1 3RF clonazepam [Klonopin] 0.5 mg tablet 0.5 mg PO DAILY PRN (Reason: anxiety) Qty: 30 1RF methocarbamol 750 mg tablet 1,500 mg PO TID Qty: 90 0RF lidocaine 5 % adhesive patch,medicated 1 patch topical DAILY Qty: 15 0RF Rx Instructions: leave on most painful area for up to 12 hrs Clinical Impressions Clinical Impression: Nausea & vomiting Print Language Print Language: Persian Discharge ED Provider: Emmett Alvarez General Adult HPI General Chief complaint: Nausea/Vomiting/Diarrhea Stated complaint: Abd upset, diarrhea Time Seen by Provider: 05/10/25 13:23 Mode of Arrival: Ambulatory Source of Information: Patient Description of Symptoms (Recalled from ER Triage Doc. by RN): patient presents to the ED for nausea and diarrhea that started last night. patient took some zofran she had at home last night with no improvements. History of Present Illness HPI narrative: This is a 45-year-old female patient, with past medical history of anxiety as well as tobacco abuse, who is presenting to the emergency department today for evaluation of abdominal pain. Patient states that her pain is diffuse across her upper abdomen. She has had some nausea and vomiting as well as diarrhea over the last 24 hours. She states that her daughter has also felt unwell but has not experienced the nausea, vomiting, and diarrhea that she has experienced. She has been afebrile. No respiratory symptoms. She is not experiencing urinary symptoms. Related Data Previous Rx's ?Medication ?Instructions ?Recorded clonazepam 0.5 mg tablet (Klonopin) 0.5 mg PO DAILY DC N anxiety #30 02/01/24 tabs medroxyprogesterone 150 mg/mL 150 mg IM [id number] #1 mL 05/29/24 intramuscular suspension lidocaine 5 % topical patch 1 patch topical DAILY #15 ea 09/20/24 methocarbamol 750 mg tablet 1,500 mg (2 x 750 mg) PO T ID #90 09/20/24 tabs Allergies Allergy/AdvReac Type Severity Reaction Status Date / Time codeine Allergy Verified 05/29/24 08:56 [facility] Disclaimer: The information contained in this section may have been updated after the patient was seen, as this information can be updated by other users. Medical History Alopecia Generalized anxiety disorder Spleen laceration Surgical History (Updated 05/29/24 @ 09:01 by ESE Turner) History of surgery Family History Other Cancer Diabetes Hyperlipidemia Hypertension Thyroid disorder Social History Smoking Status: Current every day smoker tobacco type: e-cigarettes alcohol intake: never substance use type: former substance user current occupational status: unemployed Travel in the last 8 weeks?: None household members: children housing: apartment Have you lived/traveled outside US in past 30 days?: No Contact w/someone who lives/traveled outside US past 30 days?: No Exposure to someone with infectious disease in past 14 days?: No Do you have a fever (greater than 100.4 F or 38 C)?: No Have you tested positive for COVID-19?: No Exposed to someone with COVID-19 in past 14 days?: No Do you have a sore throat?: No Do you have a cough?: No Do you have any weakness?: No Do you have any diarrhea?: No Are you experiencing any unusual bleeding?: No Do you have any muscle aches/pain?: No Do you have any abdominal pain?: No Are you experiencing loss of taste or smell?: No Other Medical History Have you received the Flu Vaccine for this season: No Have you received the Pneumonia Vaccine: No ROS Obtained: Yes Systems reviewed as appropriate & no additional complaints except as documented Physical Exam General General appearance: other (See MDM) Respiratory Respiratory exam: Present other (See MDM) Cardiovascular Cardiovascular exam: Present other (See MDM) Neurological Exam Neurological exam: Present other (See MDM) Medical Decision Making Medical Records Medical records reviewed: Yes I reviewed the patient's medical records. Screening: Per USPSTF and CDC recommendations, given the prevalence of disease in our region, it is our hospital?s policy to screen for HIV and viral Hepatitis for all patients aged 18 and over and those with ongoing risk factors. Tyshawn Inquiry Pt receiving controlled substance: No Tyshawn was queried for this patient: No Vital Signs: 05/10/25 13:13 05/10/25 14:44 Temperature 98.3 F 98.3 F Temperature Source Temporal Artery Scan Oral Pulse Rate 67 Pulse Rate [Right Radial] 67 Respiratory Rate 18 18 Blood Pressure 139/85 Blood Pressure [Right Arm] 139/85 Blood Pressure Mean [Right Arm] 103 Blood Pressure Source Automatic Cuff Blood Pressure Source [Right Arm] Automatic Cuff Blood Pressure Position Supine Blood Pressure Position [Right Arm] Sitting 02 Sat by Pulse Oximetry 99 Oxygen Delivery Method Room Air Room Air Lab Data Lab Results 05/10/25 13:55: WBC 8.4, RBC 4.44, Hgb 14.2, Hct 40.9, MCV 92.1, MCH 32.0 H, MCHC 34.7, RDW 11.6, Plt Count 249, MPV 11.4 H, Neut % (Auto) 53.5, Lymph % (Auto) 34.3, [place] % (Auto) 8.5, Eos % (Auto) 3.0, Baso % (Auto) 0.5, Neut # (Auto) 4.5, Lymph # (Auto) 2.9, [place] # (Auto) 0.7, Eos # (Auto) 0.3, Baso # (Auto) 0.0, Sodium 139, Potassium 4.0, Chloride 105, Carbon Dioxide 27, Anion Gap 11.0, BUN 18 H, Creatinine 0.60, Estimated Creat Clear 113, Estimated GFR 109, Est GFR ( Amer) 132, Glucose 85, Calcium 9.4, Total Bilirubin 0.8, AST 29, ALT 19, Alkaline Phosphatase 51, Total Protein 7.9, Albumin 4.7, Globulin 3.2, Albumin/Globulin Ratio 1.5, Lipase 81, Serum HCG, Qual Negative 05/10/25 14:15: SARS-CoV-2 (PCR) Not detected, Influenza Type A (PCR) Not detected, Influenza Type B (PCR) Not detected, RSV (PCR) Not detected, Rhinovirus (PCR) Not detected 05/10/25 13:55 05/10/25 13:55 Orders (Tests/Meds): ORDERS Category Date Time Status CBC w/Auto Diff [Complete Blood Count Auto Diff] Stat Lab 05/10/25 13:55 Completed CMP [Comprehensive Metabolic Panel] Stat Lab 05/10/25 13:55 Completed Lipase Stat Lab 05/10/25 13:55 Completed Mini Respiratory Panel Stat Lab 05/10/25 14:15 Completed Serum [HCG Qualitative, Serum] Stat Lab 05/10/25 13:55 Completed Medical Decision Narrative: In summary, this a 45-year-old female patient who is presenting to the emergency department today for evaluation of abdominal pain with nausea, vomiting, and diarrhea. Comorbidities include past medical history of alopecia as well as tobacco abuse. On initial evaluation of the patient they were resting comfortably in no acute distress and nontoxic in appearance. They are hemodynamically stable, saturating well room air, and are neurologically intact. On physical examination of the patient she was appropriately alert and interactive with a GCS of 15. Heart and lungs are clear to auscultation bilaterally. She has right upper quadrants and epigastric abdominal tenderness to palpation with no evidence of elvi peritonitis. She has no lower extremity erythema or edema. Differential diagnosis includes gastritis, gastroenteritis, pancreatitis, viral syndrome, cholecystitis, cholelithiasis, intra-abdominal abscess, urinary tract infection, , among others. Workup was initiated with hematologic labs as well as a CT scan of the abdomen and pelvis. Labs were personally interpreted by me and demonstrate no actionable abnormalities. Prior to being able to obtain a CT scan of the abdomen and pelvis and a urine sample for the patient she eloped from the emergency department. I was unable to prenatal genetic counselor the patient on risks and benefits. Critical Care Critical Care Time Critical Care Time: No
== END 2025-05-10 14:47 | disposition left against medical advice (07) ==
PROVIDERS: Emergency Provider Student in an Organized Health Care Education/Training Program; PCP Nurse Practitioner Family
DX: R10.84 Generalized abdominal pain (principal); R11.2 Nausea with vomiting, unspecified; F17.290 Nicotine dependence, other tobacco product, uncomplicated
CPT/HCPCS: 80053; 83690; 84703; 85025; 87631; 99284

== ENCOUNTER 2025-06-14 09:02 | Emergency (ER) | payer MEDICAID, SELFPAY ==
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
[2025-06-14 09:13] VITALS: BP 137/88; PULSE 65; RESP 16; TEMP 36.6; O2SAT 99; BMI 24.9
[2025-06-14 09:16] VITALS: BP 137/88; PULSE 66; O2SAT 99
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
[2025-06-14 09:30] VITALS: PULSE 54; O2SAT 99
[2025-06-14] MEDS: ONDANSETRON 4MG/2ML VIAL 4 MG IV (09:32)
[2025-06-14 09:36] LABS: Hematocrit 38.8 % (37.0-47.0); Hemoglobin 13.6 g/dL (12.2-16.2); Immature Granulocytes % 0.3 %; Mean Corpuscular HGB Conc 35.1 g/dL (31.8-35.4); Mean Corpuscular Hemoglobin 32.7 pg (27.0-31.2); Mean Corpuscular Volume 93.3 fl (81-99); Nucleated Red Blood Cells % 0 %; Platelet Count 245 K/mm3 (142-424); Red Blood Count 4.16 M/mm3 (4.20-5.40); Red Cell Distribution Width-SD 40.3 fL; White Blood Count 7.0 K/mm3 (4.8-10.8)
[2025-06-14 09:49] LABS: HCG Qualitative, Serum Negative (Negative)
[2025-06-14] MEDS: 0.9 % SODIUM CHLORIDE 50 ML VIAL 40 ML IV (10:03)
[2025-06-14] MEDS: SODIUM CHLORIDE 0.9% 10ML SYR (RAD ONLY) 10 ML IV (10:03)
[2025-06-14] MEDS: IOPAMIDOL-370 (76%);100ML BOTTLE 80 ML IV (10:03)
[2025-06-14 10:09] LABS: INR 0.97 (0.9-1.1); Prothrombin Time 10.8 seconds (10.1-12.5)
[2025-06-14] MEDS: ACETAMINOPHEN 500MG TAB 1000 MG PO (10:09)
[2025-06-14] MEDS: METHOCARBAMOL 500MG TABLET 500 MG PO (10:09)
--- NOTE | 2025-06-14 10:48 | PC.NURSE ---
I called radiology and spoke to Justin inquiring on the results of the pts scans. He is going to print the prelim.
[2025-06-14 11:23] LABS: Alanine Aminotransferase 16 U/L (12-78); Albumin Level 4.0 g/dl (3.5-5.0); Albumin/Globulin Ratio 1.5 (1.1-1.8); Alkaline Phosphatase 63 U/L (38-126); Anion Gap 14.5 mEq/L (5-15); Aspartate Amino Transferase 22 U/L (14-36); Bilirubin,Total 0.5 mg/dl (0.2-1.3); Blood Urea Nitrogen 19 mg/dl (7-17); Calcium 8.8 mg/dl (8.4-10.2); Carbon Dioxide 24 mmol/L (22.0-30.0); Chloride 104 mmol/L (98-107); Creatinine Clearance Estimated 108 mL/min (50-200); Creatinine,Serum 0.70 mg/dl (0.52-1.04); Estimated Glomerular Filt Rate 91 ml/min (>60); GFR (African American) 111 ML/MIN (>60); Globulin 2.7 g/dL (1.3-3.2); Glucose 106 mg/dl (74-100); Potassium 4.5 mmoL/L (3.5-5.1); Sodium 138 mmol/L (136-145); Total Protein,Serum 6.7 g/dl (6.3-8.2)
[2025-06-14 11:37] LABS: Troponin I < 0.01 ng/ml (0.00-0.034)
--- NOTE | 2025-06-14 11:55 | PC.NURSE ---
Spoke with Aisha in radiology she is checking on the pelvis/abd CTA
[2025-06-14 12:45] VITALS: BP 111/56; PULSE 53; RESP 16; TEMP 36.6; O2SAT 100
== END 2025-06-14 12:47 | disposition home or self-care (01) ==
PROVIDERS: Emergency Provider Student in an Organized Health Care Education/Training Program; PCP Nurse Practitioner Family
DX: R10.32 Left lower quadrant pain (principal); R07.89 Other chest pain; I45.10 Unspecified right bundle-branch block; M54.50 Low back pain, unspecified; F17.290 Nicotine dependence, other tobacco product, uncomplicated; V49.40XA Driver injured in collision with unspecified motor vehicles in traffic accident, initial encounter
CPT/HCPCS: 71275; 72131; 74174; 80053; 84484; 84703; 85025; 85610; 93005; 96374; 99284; 99285; J2405; Q9967